=== PATIENT | male | born 1940 | race Hispanic/Latino ===

== ENCOUNTER 2018-02-23 08:40 | Outpatient (CLI) | payer MEDICARE ==
[2018-02-23 09:24] LABS: Blood Urea Nitrogen 9 mg/dL (9-20)
--- NOTE | 2018-02-24 07:47 | Cat Scan Report ---
CT ABDOMEN PELVIS WITH AND WITHOUT CONTRAST: HISTORY: Epigastric pain, abnormal weight loss. COMPARISON: CT abdomen pelvis with contrast dated 01/26/17. TECHNIQUE: Helical CT in 1.25mm intervals before and after IV contrast. Sagittal and coronal reconstructions. FINDINGS: Lung bases: Mild cardiomegaly and pacemaker device are unchanged. A small intermediate density right pleural fluid collection has developed. Nondisplaced right posterolateral rib fractures are identified at levels 7-10. Some of the fractures demonstrate early callous formation consistent with subacute fractures. The visualized lung bases are adequately aerated with no evidence for pneumonia or mass. Liver: Normal. Biliary system: Normal. Pancreas: Normal. Spleen: The spleen is normal size but is lobulated and contains scattered calcified granulomas. 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 There are 3 simple cysts in the right side with the largest measuring 4.2 cm. There is a single hemorrhagic cyst on the left side measuring 2.1 cm. No evidence for renal mass, nephrolithiasis or obstruction. Focal cortical scarring near the superior pole of the right kidney is unchanged. The ureters are normal course and caliber. The bladder is poorly distended. Mild lateral thickening or trabeculation is identified. No focal mass or filling defect. Adrenal glands: Normal. Aorta: Mild diffuse calcifications. No evidence for stenosis, aneurysm or dissection. Intestines: There are a few scattered diverticula throughout the length of the colon. No evidence for obstruction, large mass or focal inflammation. Partial small bowel obstruction pattern has resolved since 01/26/17. Appendix: Not confidently identified, correlate with surgical history. Ascites: None. Adenopathy: None. Musculoskeletal: The bony structures are demineralized with degenerative change. Right rib fractures are again noted. No additional fracture or bony lesion identified. Previous ventral wall hernia changes are suspected. IMPRESSION: Mild cardiomegaly, stable. Small right hemothorax with right posterolateral rib fractures as described. Horseshoe kidney with scattered renal cysts. Mild colonic diverticulosis. No acute inflammatory process, adenopathy or mass is identified.
== END 2018-02-23 08:41 | disposition home or self-care (01) ==
LOC: CT 08:40
PROVIDERS: ATTEND Internal Medicine
DX: K57.30 Diverticulosis of large intestine without perforation or abscess without bleeding (principal); R63.4 Abnormal weight loss; I70.0 Atherosclerosis of aorta; N28.1 Cyst of kidney, acquired; I25.10 Atherosclerotic heart disease of native coronary artery without angina pectoris; I11.0 Hypertensive heart disease with heart failure; I50.9 Heart failure, unspecified; I48.91 Unspecified atrial fibrillation; F32.9 Major depressive disorder, single episode, unspecified; F41.9 Anxiety disorder, unspecified; Z95.0 Presence of cardiac pacemaker
CPT/HCPCS: 36415; 74178; 82565; 84520; Q9967

== ENCOUNTER 2020-08-16 01:36 | Inpatient (IN) | payer MEDICARE ==
[2020-08-16 02:13] LABS: Hematocrit 39.1 % (35.5-45.6); Hemoglobin 12.9 gm/dl (11.8-15.2); Mean Corpuscular HGB Conc 33 % (32-34); Mean Corpuscular Volume 97 fl (84-94); Platelet Count 399 K/mm3 (140-440); Red Blood Count 4.03 M/mm3 (3.65-5.03); Red Cell Distribution Width 15.6 % (13.2-15.2)
[2020-08-16] MEDS ORDERED: ONDANSETRON 4 MG/2 ML INJ IV ONE (02:33)
[2020-08-16] MEDS ORDERED: HYDROmorphone 1 MG/1 ML INJ IV ONE (02:33)
[2020-08-16] MEDS ORDERED: SODIUM CHLORIDE 0.9% 1000 ML 1,000 ML IV ONE ×2 (02:33→06:21)
--- NOTE | 2020-08-16 02:33 | Emergency Department Report ---
ED Abdominal Pain HPI - General Chief Complaint: Abdominal Pain Stated Complaint: CONSTIPATION Time Seen by Provider: 08/16/20 02:17 Source: patient, EMS Mode of arrival: Stretcher Limitations: No Limitations - History of Present Illness Initial Comments: Patient is an 80-year-old male that presents emergency room with complaints of generalized abdominal pain. Patient states it started 3 PM yesterday. Patient states that the pain is worsening. Patient states the pain is a 10 out of 10. Patient states the pain is better with rest and worse with movement and palpation. Patient denies fever and chills. Patient states he feels like he is blocked up. Patient states he has had a bowel movement for 3 days. Patient states he is now nauseated. Patient denies vomiting. Patient states he has had a bowel obstruction in the past. Patient denies chest pain or shortness of breath. Patient denies recent travel. Patient denies recent international travel. Patient denies exposure to the novel coronavirus. Patient denies sick contacts. Patient denies fever and chills. Patient denies cough. Patient denies diarrhea. Patient denies coming in contact with anybody with symptoms of the novel coronavirus. MD Complaint: abdominal pain -: Sudden Location: diffuse Radiation: none Migration to: no migration Severity: severe Severity scale (0 -10): 10 Quality: stabbing Consistency: constant Improves With: rest Worsens With: movement Associated Symptoms: nausea, constipation. denies: vomiting, diarrhea, fever, chills, dysuria, hematemesis, hematochezia, hematuria, syncope - Related Data Home Medications Medication Instructions Recorded Confirmed Last Taken Furosemide [Lasix TAB] 20 mg PO QDAY 07/26/16 02/08/18 01/26/17 Multivit-Min/Iron Fum/Folic AC 1 each PO DAILY 07/26/16 02/08/18 01/26/17 [Gvbuy-Bygtmwv-Lzcguzkj Tablet] Potassium Chloride [K-Dur] 10 meq PO QDAY 07/26/16 02/08/18 01/26/17 Pravastatin Sodium [Pravastatin] 80 mg PO QHS 07/26/16 02/08/18 01/25/17 Sertraline [Zoloft] 50 mg PO QDAY 07/26/16 02/08/18 01/26/17 atenoloL [Tenormin] 50 mg PO BID 07/26/16 02/08/18 01/26/17 lisinopriL [Zestril TAB] 40 mg PO QDAY 07/26/16 02/08/18 01/26/17 Ascorbic Acid [Vitamin C] 1,000 mg PO QDAY 11/11/16 02/08/18 01/26/17 Ca/D3/Mag Ox/Zinc/[employer]/Sherif/Bor 1 each PO QDAY 11/11/16 02/08/18 01/26/17 [Calcium 600-Vit D3-Min Chew Tb] Cyanocobalamin (Vitamin B-12) 1,500 mcg PO QDAY 11/11/16 02/08/18 01/26/17 [Vitamelts Energy] Glucos/MSM/Colgii/C/Man/Herb21 1 each PO QDAY 11/11/16 02/08/18 01/26/17 [Glucosamine-MSM Complex Cap] Ubidecarenone [Coq-10] 100 mg PO QDAY 11/11/16 02/08/18 01/26/17 Previous Rx's Medication Instructions Recorded Last Taken Type Apixaban [Eliquis] 5 mg PO BID #60 tablet 02/11/18 Unknown Rx Allergies Allergy/AdvReac Type Severity Reaction Status Date / Time piperacillin [From Zosyn] AdvReac Rash Verified 02/08/18 09:24 tazobactam [From Zosyn] AdvReac Rash Verified 02/08/18 09:24 ED Review of Systems ROS: Stated complaint: CONSTIPATION Other details as noted in HPI Constitutional: denies: chills, fever Eyes: denies: eye pain, eye discharge, vision change ENT: denies: ear pain, throat pain Respiratory: denies: cough, shortness of breath, wheezing Cardiovascular: denies: chest pain, palpitations Endocrine: no symptoms reported Gastrointestinal: abdominal pain, nausea, constipation. denies: vomiting, diarrhea, hematemesis, melena Genitourinary: denies: urgency, dysuria Musculoskeletal: denies: back pain, joint swelling, arthralgia Skin: denies: rash, lesions Neurological: denies: headache, weakness, paresthesias Psychiatric: denies: anxiety, depression Hematological/Lymphatic: denies: easy bleeding, easy bruising ED Past Medical Hx - Past Medical History Previous Medical History?: Yes Hx Hypertension: Yes Hx Arthritis: Yes (IN ANKLES AND BACK) Hx HIV: No Additional medical history: abd surgery colostomy with reversal. Atrial fibrillation. high cholesterol. Pacemaker - Surgical History Past Surgical History?: Yes Hx Pacemaker: Yes (2008) Additional Surgical History: Colon resection - Family History Family history: no significant - Social History Smoking Status: Never Smoker Substance Use Type: None - Medications Home Medications: Home Medications Medication Instructions Recorded Confirmed Last Taken Type Furosemide [Lasix TAB] 20 mg PO QDAY 07/26/16 02/08/18 01/26/17 History Multivit-Min/Iron Fum/Folic AC 1 each PO DAILY 07/26/16 02/08/18 01/26/17 History [Srhps-Jbjyarn-Nlnbmqyq Tablet] Potassium Chloride [K-Dur] 10 meq PO QDAY 07/26/16 02/08/18 01/26/17 History Pravastatin Sodium [Pravastatin] 80 mg PO QHS 07/26/16 02/08/18 01/25/17 History Sertraline [Zoloft] 50 mg PO QDAY 07/26/16 02/08/18 01/26/17 History atenoloL [Tenormin] 50 mg PO BID 07/26/16 02/08/18 01/26/17 History lisinopriL [Zestril TAB] 40 mg PO QDAY 07/26/16 02/08/18 01/26/17 History Ascorbic Acid [Vitamin C] 1,000 mg PO QDAY 11/11/16 02/08/18 01/26/17 History Ca/D3/Mag Ox/Zinc/[employer] Sergeant/Sherif/Bor 1 each PO QDAY 11/11/16 02/08/18 01/26/17 History [Calcium 600-Vit D3-Min Chew Tb] Cyanocobalamin (Vitamin B-12) 1,500 mcg PO QDAY 11/11/16 02/08/18 01/26/17 History [Vitamelts Energy] Glucos/MSM/Colgii/C/Man/Herb21 1 each PO QDAY 11/11/16 02/08/18 01/26/17 History [Glucosamine-MSM Complex Cap] Ubidecarenone [Coq-10] 100 mg PO QDAY 11/11/16 02/08/18 01/26/17 History Apixaban [Eliquis] 5 mg PO BID #60 tablet 02/11/18 Unknown Rx ED Physical Exam - General Limitations: No Limitations General appearance: alert, in no apparent distress - Head Head exam: Present: atraumatic, normocephalic - Eye Eye exam: Present: normal appearance - ENT ENT exam: Present: mucous membranes moist - Neck Neck exam: Present: normal inspection - Respiratory Respiratory exam: Present: normal lung sounds bilaterally. Absent: respiratory distress - Cardiovascular Cardiovascular Exam: Present: regular rate, normal rhythm. Absent: systolic murmur, diastolic murmur, rubs, gallop - GI/Abdominal GI/Abdominal exam: Present: soft, distended, tenderness, normal bowel sounds - Rectal Rectal exam: Present: deferred - Extremities Exam Extremities exam: Present: normal inspection - Back Exam Back exam: Present: normal inspection - Neurological Exam Neurological exam: Present: alert, oriented X3 - Psychiatric Psychiatric exam: Present: normal affect, normal mood - Skin Skin exam: Present: warm, dry, intact, normal color. Absent: rash ED Course Vital Signs 08/16/20 08/16/20 08/16/20 02:51 02:55 03:00 Pulse Rate 87 Respiratory 18 15 Rate Blood Pressure 129/68 O2 Sat by Pulse 85 96 Oximetry 08/16/20 08/16/20 08/16/20 03:15 03:30 03:45 Pulse Rate 83 89 96 H Respiratory 18 13 15 Rate Blood Pressure 122/58 122/58 131/71 O2 Sat by Pulse 82 L 90 99 Oximetry 08/16/20 08/16/20 08/16/20 04:00 04:44 04:46 Pulse Rate 89 91 H 88 Respiratory 14 21 17 Rate Blood Pressure 130/72 130/72 136/66 O2 Sat by Pulse 99 97 100 Oximetry 08/16/20 08/16/20 08/16/20 05:00 05:15 05:30 Pulse Rate 88 93 H 90 Respiratory 21 17 22 Rate Blood Pressure 134/69 131/62 134/69 O2 Sat by Pulse 100 97 99 Oximetry - Reevaluation(s) Reevaluation #1: I discussed all results with patient. I discussed plan of care with patient. Patient agrees with plan of care and admission. Patient to be admitted to the hospitalist service. 08/16/20 05:17 - Consultations Consultation #1: Hospitalist consulted for admission. Hospitalist to admit patient. 08/16/20 05:10 Consultation #2: General surgery consulted. I discussed the case with Dr. Bautista. Dr. Bautista states he will see the patient in the morning and agrees with NG and fluids. 08/16/20 05:17 ED Medical Decision Making - Lab Data Result diagrams: 08/16/20 01:56 08/16/20 01:56 - Radiology Data Radiology results: report reviewed CT ABDOMEN AND PELVIS WITH CONTRAST HISTORY: Pt complains of abd pain with nausea and constipation. COMPARISON: CT abdomen/pelvis from 02/23/2018 TECHNIQUE: CT images of the abdomen and pelvis were obtained following administration of intravenous contrast. All CT scans at this location are performed using CT dose reduction for ALARA by means of automated exposure control. CONTRAST: 100 ml of intravenous contrast administered. FINDINGS: Lungs/bones: Lung bases are clear. There is mild cardiomegaly. Degenerative changes are present in the spine and pelvis with no acute osseous abnormality. Abdomen/pelvis: The liver, gallbladder, spleen, pancreas, and adrenals are unremarkable. There is a horseshoe kidney with several small cysts which are simple in appearance. The stomach is mildly distended and the proximal GI tract is abnormal with multiple distended and dilated bowel loops. Several these loops show areas of angulation. The distal small bowel is collapsed. Prostate is enlarged and indents bladder base. No pelvic free fluid. There is colonic diverticulosis with no acute inflammatory change identified. Partial colectomy change is noted. IMPRESSION: 1. 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 The stomach is also grossly distended. 2. Additional incidental and postoperative findings as above. - Medical Decision Making Patient is an 80-year-old male that presents emergency room with complaints of constipation, nausea and abdominal pain. Patient has history of small bowel obstructions. Patient had labs done and a CT done. Patient's labs were essentially unremarkable. Patient's CT scanning was positive for a partial small bowel obstruction. Patient had an NG tube placed. Patient was given pain meds and IV fluids in the ER. I discussed the case with general surgery. [facility] surgery recommendations were received. Patient admitted to the hospitalist service for further evaluation and treatment. - Differential Diagnosis SBO, abdominal pain, nausea, constipation Critical Care Time: Yes Critical care time in (mins) excluding proc time.: 35 Critical care attestation.: If time is entered above; I have spent that time in minutes in the direct care of this critically ill patient, excluding procedure time. Critical Care Time: 35 minutes ED Disposition Clinical Impression: Small bowel obstruction Abdominal pain Qualifiers: Abdominal location: generalized Qualified Code(s): R10.84 - Generalized abdominal pain Disposition: DC-09 OP ADMIT IP TO THIS HOSP Is pt being admited?: Yes Does the pt Need Aspirin: No Condition: Critical Time of Disposition: 05:20
[2020-08-16 02:35] LABS: Alanine Aminotransferase 17 units/L (7-56); Albumin 4.6 g/dL (3.9-5); BUN/Creatinine Ratio 17; Blood Urea Nitrogen 15 mg/dL (9-20); Calcium 9.3 mg/dL (8.4-10.2); Hemolysis Index 4
[2020-08-16 04:49] LABS: Basophils % (Manual) 0 % (0.0-1.8); Eosinophils % (Manual) 0 % (0.0-4.3); Spherocytes Few; Total Cells Counted 100
[2020-08-16 04:50] LABS: Anisocytosis 1+; Burr Cells Few; Platelet Estimate Consistent w Auto
--- NOTE | 2020-08-16 05:01 | Cat Scan Report ---
CT ABDOMEN AND PELVIS WITH CONTRAST HISTORY: Pt complains of abd pain with nausea and constipation. COMPARISON: CT abdomen/pelvis from 02/23/2018 TECHNIQUE: CT images of the abdomen and pelvis were obtained following administration of intravenous contrast. All CT scans at this location are performed using CT dose reduction for ALARA by means of automated exposure control. CONTRAST: 100 ml of intravenous contrast administered. FINDINGS: Lungs/bones: Lung bases are clear. There is mild cardiomegaly. Degenerative changes are present in t he spine and pelvis with no acute osseous abnormality. Abdomen/pelvis: The liver, gallbladder, spleen, pancreas, and adrenals are unremarkable. There is a horseshoe kidney with several small cysts which are simple in appearance. The stomach is mildly distended and the proximal GI tract is abnormal with multiple distended and dil ated bowel loops. Several these loops show areas of angulation. The distal small bowel is collapsed. Prostate is enlarged and indents bladder base. No pelvic free fluid. There is colonic diverticulosis with no acute inflammatory change identified. Partial colectomy change is noted. IMPRESSION: 1. 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 The stomach is also grossly distended. 2. Additional incidental and postoperative findings as above. Signer Name: Balwinder Schilling MD Signed: 08/16/2020 4:56 AM Workstation Name: [id number]
[2020-08-16] MEDS ORDERED: ACETAMINOPHEN 650 MG RECT SUPP PR PRN (06:32)
[2020-08-16] MEDS ORDERED: ONDANSETRON 4 MG/2 ML INJ IV PRN (06:33)
[2020-08-16] MEDS ORDERED: HYDROmorphone 1 MG/1 ML INJ IM PRN (06:33)
--- NOTE | 2020-08-16 06:43 | History and Physical Report ---
History of Present Illness Date of examination: 08/16/20 Date of admission: 08/16/20 05:19 Chief complaint: Abdominal pain History of present illness: History of presenting illness, Patient is an 80 year old male who presents with abdominal pain going on for about 36 hours. patient described the pain as severe and non radiating and measured as 10/10 in intesity. pain is associated with nausea but no vomiting, fever.chills . Patient admitted to having constipation without bowel movement for 3 days. He said that his symptos are similar to what he had when he had small bowel obstruction. Past History Past Medical History: atrial fib, arthritis, hypertension, hyperlipidemia Past Surgical History: Other (COLOSTOMY WITH REVERSAL, PACEMAKER, COLON RESECTION) Social history: no significant social history Family history: no significant family history Medications and Allergies Allergies Allergy/AdvReac Type Severity Reaction Status Date / Time piperacillin [From Zosyn] AdvReac Rash Verified 02/08/18 09:24 tazobactam [From Zosyn] AdvReac Rash Verified 02/08/18 09:24 Home Medications Medication Instructions Recorded Confirmed Last Taken Type Furosemide [Lasix TAB] 20 mg PO QDAY 07/26/16 02/08/18 01/26/17 History Multivit-Min/Iron Fum/Folic AC 1 each PO DAILY 07/26/16 02/08/18 01/26/17 History [Aiscm-Edipevv-Dhcvlkmv Tablet] Potassium Chloride [K-Dur] 10 meq PO QDAY 07/26/16 02/08/18 01/26/17 History Pravastatin Sodium [Pravastatin] 80 mg PO QHS 07/26/16 02/08/18 01/25/17 History Sertraline [Zoloft] 50 mg PO QDAY 07/26/16 02/08/18 01/26/17 History atenoloL [Tenormin] 50 mg PO BID 07/26/16 02/08/18 01/26/17 History lisinopriL [Zestril TAB] 40 mg PO QDAY 07/26/16 02/08/18 01/26/17 History Ascorbic Acid [Vitamin C] 1,000 mg PO QDAY 11/11/16 02/08/18 01/26/17 History Ca/D3/Mag Ox/Zinc/Sports Instructor/Sherif/Bor 1 each PO QDAY 02/02/08/18 01/26/17 History [Calcium 600-Vit D3-Min Chew Tb] Cyanocobalamin (Vitamin B-12) 1,500 mcg PO QDAY 11/11/16 02/08/18 01/26/17 History [Vitamelts Energy] Glucos/MSM/Colgii/C/Man/Herb21 1 each PO QDAY 11/11/16 02/08/18 01/26/17 History [Glucosamine-MSM Complex Cap] Ubidecarenone [Coq-10] 100 mg PO QDAY 11/11/16 02/08/18 01/26/17 History Apixaban [Eliquis] 5 mg PO BID #60 tablet 02/11/18 Unknown Rx Active Meds: Active Medications Acetaminophen (Tylenol) 650 mg [place] Q4H PRN PRN Reason: Fever >101 Hydromorphone HCl (Dilaudid) 0.5 mg IM Q4H PRN PRN Reason: Pain , Severe (7-10) Sodium Chloride (Nacl 0.9% 1000 Ml) 1,000 mls @ 250 mls/hr IV ONCE ONE Stop: 08/16/20 10:20 Dextrose/Sodium Chloride (D5/0.45ns) 1,000 mls @ 75 mls/hr IV DIRECT CHERELLE Levofloxacin/Dextrose (Levaquin 750mg/150ml) 750 mg in 150 mls @ 100 mls/hr IV Q24HR CHERELLE; Protocol Metronidazole (Flagyl 500 Mg/100 Ml) 500 mg in 100 mls @ 100 mls/hr IV Q8HR CHERELLE; Protocol Ondansetron HCl (Zofran) 4 mg IV Q8H PRN PRN Reason: Nausea And Vomiting Review of Systems Constitutional: no fever, no chills, no sweats, no weakness Eyes: bilateral: other (NO BILATERAL EYE SYMPTOMS) Ears, nose, mouth and throat: no ear pain Cardiovascular: no chest pain, no orthopnea, no palpitations, no rapid/irregular heart beat, no syncope, no lightheadedness, no shortness of breath Respiratory: no cough, no shortness of breath, no dyspnea on exertion, no congestion, no wheezing Gastrointestinal: abdominal pain, nausea, constipation, change in bowel habits, no vomiting, no diarrhea, no hematemesis, no melena, no hematochezia Genitourinary Male: no dysuria, no hematuria, no flank pain, no discharge, no urinary frequency, no urinary hesitancy, no nocturia, no incontinence Rectal: no pain, no itching Musculoskeletal: no neck stiffness, no neck pain, no shooting arm pain, no arm numbness/tingling, no low back pain Integumentary: no deferred, no rash, no pruritis, no redness, no sores, no wounds, no jaundice, no lesions Neurological: no paralysis, no weakness, no parathesias, no numbness, no tingling, no seizures, no syncope, no tremors, no headaches, no migraines Psychiatric: no anxiety, no memory loss, no depression Endocrine: no polyphagia, no polyuria, no nocturia Hematologic/Lymphatic: no easy bruising, no easy bleeding Exam - Constitutional Vitals: Temp Pulse Resp BP Pulse Ox 90 22 134/69 99 08/16/20 05:30 08/16/20 05:30 08/16/20 05:30 08/16/20 05:30 General appearance: Present: mild distress - EENT Eyes: Present: PERRL, EOM intact ENT: hearing intact, clear oral mucosa - Neck Neck: Present: supple, normal ROM - Respiratory Respiratory effort: normal - Cardiovascular Rhythm: regular Heart Sounds: Present: S1 & S2 - Extremities Extremities: no ischemia, No edema - Abdominal General gastrointestinal: Present: soft, distended. Absent: tender, non- distended, rigid, hypoactive bowel sounds, absent bowel sounds, hepatomegaly, splenomegaly, mass, hernia Male genitourinary: Present: deferred - Rectal Rectal Exam: deferred - Integumentary Integumentary: Present: clear, warm, dry - Musculoskeletal Musculoskeletal: strength equal bilaterally - Neurologic Neurologic: moves all extremities HEART Score - HEART Score Risk factors: 1-2 risk factors Troponin: < normal limit - Critical Actions Critical Actions: 0-3 pts:0.9-1.7%risk of adverse cardiac event.Candidate for discharge Results - Labs CBC & Chem 7: 08/16/20 01:56 08/16/20 01:56 Labs: Laboratory Last Values WBC 13.3 K/mm3 (4.5-11.0) H 08/16/20 01:56 RBC 4.03 M/mm3 (3.65-5.03) 08/16/20 01:56 Hgb 12.9 gm/dl (11.8-15.2) 08/16/20 01:56 Hct 39.1 % (35.5-45.6) 08/16/20 01:56 MCV 97 fl (84-94) H 08/16/20 01:56 MCH 32 pg (28-32) 08/16/20 01:56 MCHC 33 % (32-34) 08/16/20 01:56 RDW 15.6 % (13.2-15.2) H 08/16/20 01:56 Plt Count 399 K/mm3 (140-440) 08/16/20 01:56 Add Manual Diff Complete 08/16/20 01:56 Total Counted 100 08/16/20 01:56 Seg Neutrophils % Podiatrist 08/16/20 01:56 Seg Neuts % (Manual) 92.0 % (40.0-70.0) H 08/16/20 01:56 Band Neutrophils % 0 % 08/16/20 01:56 Lymphocytes % (Manual) 7.0 % (13.4-35.0) L 08/16/20 01:56 Reactive Lymphs % (Man) 0 % 08/16/20 01:56 Monocytes % (Manual) 1.0 % (0.0-7.3) 08/16/20 01:56 Eosinophils % (Manual) 0 % (0.0-4.3) 08/16/20 01:56 Basophils % (Manual) 0 % (0.0-1.8) 08/16/20 01:56 Metamyelocytes % 0 % 08/16/20 01:56 Myelocytes % 0 % 08/16/20 01:56 Promyelocytes % 0 % 08/16/20 01:56 Blast Cells % 0 % 08/16/20 01:56 Nucleated RBC % Not Reportable 08/16/20 01:56 Seg Neutrophils # Man 12.2 K/mm3 (1.8-7.7) H 08/16/20 01:56 Band Neutrophils # 0.0 K/mm3 08/16/20 01:56 Lymphocytes # (Manual) 0.9 K/mm3 (1.2-5.4) L 08/16/20 01:56 Abs React Lymphs (Man) 0.0 K/mm3 08/16/20 01:56 Monocytes # (Manual) 0.1 K/mm3 (0.0-0.8) 08/16/20 01:56 Eosinophils # (Manual) 0.0 K/mm3 (0.0-0.4) 08/16/20 01:56 Basophils # (Manual) 0.0 K/mm3 (0.0-0.1) 08/16/20 01:56 Metamyelocytes # 0.0 K/mm3 08/16/20 01:56 Myelocytes # 0.0 K/mm3 08/16/20 01:56 Promyelocytes # 0.0 K/mm3 08/16/20 01:56 Blast Cells # 0.0 K/mm3 08/16/20 01:56 WBC Morphology Not Reportable 08/16/20 01:56 Hypersegmented Neuts Not Reportable 08/16/20 01:56 Hyposegmented Neuts Not Reportable 08/16/20 01:56 Hypogranular Neuts Not Reportable 08/16/20 01:56 Smudge Cells Not Reportable 08/16/20 01:56 Toxic Granulation Not Reportable 08/16/20 01:56 Toxic Vacuolation Not Reportable 08/16/20 01:56 Dohle Bodies Not Reportable 08/16/20 01:56 Pelger-Huet Anomaly Not Reportable 08/16/20 01:56 [place] Rods Not Reportable 08/16/20 01:56 Platelet Estimate Consistent w auto 08/16/20 01:56 Clumped Platelets Not Reportable 08/16/20 01:56 Plt Clumps, EDTA Not Reportable 08/16/20 01:56 Large Platelets Not Reportable 08/16/20 01:56 Giant Platelets Not Reportable 08/16/20 01:56 Platelet Satelliting Not Reportable 08/16/20 01:56 Plt Morphology Comment Not Reportable 08/16/20 01:56 RBC Morphology Not Reportable 08/16/20 01:56 Dimorphic RBCs Not Reportable 08/16/20 01:56 Polychromasia Not Reportable 08/16/20 01:56 Hypochromasia Not Reportable 08/16/20 01:56 Poikilocytosis Not Reportable 08/16/20 01:56 Anisocytosis 1+ 08/16/20 01:56 Microcytosis Not Reportable 08/16/20 01:56 Macrocytosis Not Reportable 08/16/20 01:56 Spherocytes Few 08/16/20 01:56 Pappenheimer Bodies Not Reportable 08/16/20 01:56 Sickle Cells Not Reportable 08/16/20 01:56 Target Cells Not Reportable 08/16/20 01:56 Tear Drop Cells Not Reportable 08/16/20 01:56 Ovalocytes Not Reportable 08/16/20 01:56 Helmet Cells Not Reportable 08/16/20 01:56 Roman-[place] Bodies Not Reportable 08/16/20 01:56 Nelson Rings Not Reportable 08/16/20 01:56 [place] Cells Few 08/16/20 01:56 Bite Cells Not Reportable 08/16/20 01:56 Crenated Cell Not Reportable 08/16/20 01:56 Elliptocytes Not Reportable 08/16/20 01:56 Acanthocytes (Spur) Not Reportable 08/16/20 01:56 Rouleaux Not Reportable 08/16/20 01:56 Hemoglobin C Crystals Not Reportable 08/16/20 01:56 Schistocytes Not Reportable 08/16/20 01:56 Malaria parasites Not Reportable 08/16/20 01:56 Neno Bodies Not Reportable 08/16/20 01:56 Hem Pathologist Commnt No 08/16/20 01:56 Sodium 138 mmol/L (137-145) 08/16/20 01:56 Potassium 4.2 mmol/L (3.6-5.0) 08/16/20 01:56 Chloride 97.0 mmol/L (98-107) L 08/16/20 01:56 Carbon Dioxide 28 mmol/L (22-30) 08/16/20 01:56 Anion Gap 17 mmol/L 08/16/20 01:56 BUN 15 mg/dL (9-20) 08/16/20 01:56 Creatinine 0.9 mg/dL (0.8-1.3) 08/16/20 01:56 Estimated GFR > 60 ml/min 08/16/20 01:56 BUN/Creatinine Ratio 17 % 08/16/20 01:56 Glucose 129 mg/dL (75-100) H 08/16/20 01:56 Calcium 9.3 mg/dL (8.4-10.2) 08/16/20 01:56 Total Bilirubin 0.70 mg/dL (0.1-1.2) 08/16/20 01:56 AST 31 units/L (5-40) 08/16/20 01:56 ALT 17 units/L (7-56) 08/16/20 01:56 Alkaline Phosphatase 78 units/L (35-129) 08/16/20 01:56 Total Protein 7.3 g/dL (6.3-8.2) 08/16/20 01:56 Albumin 4.6 g/dL (3.9-5) 08/16/20 01:56 Albumin/Globulin Ratio 1.7 % 08/16/20 01:56 Assessment and Plan - Patient Problems (1) Small bowel obstruction Current Visit: Yes Status: Acute Plan to address problem: 1. NPO 2. I.V DILUDID FOR PAIN 3. N-G SUCTIONING 4. I.V D51/2 NORMAL SALINE 5. I.V LEVAQUIN ANTIBIOTIC 6. I.V METRONIDAZOLE ANTIBIOTIC. 7. SURGICAL CONSULT 8. I.V ZOFRAN FOR NAUSEA AND VOMITING
--- NOTE | 2020-08-16 06:52 | XRay Report ---
ABDOMEN 1 VIEW(S) INDICATION / CLINICAL INFORMATION: ng tube placement. COMPARISON: 01/27/1970 FINDINGS: TUBES / LINES: NG tube tip in the proximal stomach. BOWEL GAS PATTERN: No significant abnormality. FREE AIR / EXTRALUMINAL GAS: None seen. ADDITIONAL FINDINGS: Patchy bibasilar airspace disease IMPRESSION: 1. NGT in the proximal stomach. Signer Name: Balwinder Schilling MD Signed: 08/16/2020 6:47 AM Workstation Name: [id number]
--- NOTE | 2020-08-16 09:06 | Progress Note ---
Assessment and Plan Full consult to follow- pt seen and examined Recurrent pSBO--- SBFT ordered NPO/IVF/NGT Subjective Date of service: 08/16/20 Objective Vital Signs - 12hr 08/16/20 08/16/20 08/16/20 02:51 02:55 03:00 Temperature Pulse Rate 87 Respiratory 18 15 Rate Blood Pressure 129/68 O2 Sat by Pulse 85 96 Oximetry 08/16/20 08/16/20 08/16/20 03:15 03:30 03:45 Temperature Pulse Rate 83 89 96 H Respiratory 18 13 15 Rate Blood Pressure 122/58 122/58 131/71 O2 Sat by Pulse 82 L 90 99 Oximetry 08/16/20 08/16/20 08/16/20 04:00 04:44 04:46 Temperature Pulse Rate 89 91 H 88 Respiratory 14 21 17 Rate Blood Pressure 130/72 130/72 136/66 O2 Sat by Pulse 99 97 100 Oximetry 08/16/20 08/16/20 08/16/20 05:00 05:15 05:30 Temperature Pulse Rate 88 93 H 90 Respiratory 21 17 22 Rate Blood Pressure 134/69 131/62 134/69 O2 Sat by Pulse 100 97 99 Oximetry 08/16/20 08/16/20 08/16/20 05:40 05:50 06:00 Temperature Pulse Rate 84 95 H 88 Respiratory 21 17 21 Rate Blood Pressure 126/58 114/58 126/58 O2 Sat by Pulse 99 96 96 Oximetry 08/16/20 08/16/20 08/16/20 06:10 06:20 06:30 Temperature Pulse Rate 94 H 98 H 92 H Respiratory 20 28 H 22 Rate Blood Pressure 123/79 119/62 127/60 O2 Sat by Pulse 98 82 L 89 Oximetry 08/16/20 07:17 Temperature 98.2 F Pulse Rate 87 Respiratory 20 Rate Blood Pressure 116/66 O2 Sat by Pulse 93 Oximetry - Labs 08/16/20 01:56 08/16/20 01:56 Diabetes panel 08/16/20 Range/Units 01:56 Sodium 138 (137-145) mmol/L Potassium 4.2 (3.6-5.0) mmol/L Chloride 97.0 L (98-107) mmol/L Carbon Dioxide 28 (22-30) mmol/L BUN 15 (9-20) mg/dL Creatinine 0.9 (0.8-1.3) mg/dL Glucose 129 H (75-100) mg/dL Calcium 9.3 (8.4-10.2) mg/dL AST 31 (5-40) units/L ALT 17 (7-56) units/L Alkaline Phosphatase 78 (35-129) units/L Total Protein 7.3 (6.3-8.2) g/dL Albumin 4.6 (3.9-5) g/dL Calcium panel 08/16/20 Range/Units 01:56 Calcium 9.3 (8.4-10.2) mg/dL Albumin 4.6 (3.9-5) g/dL Pituitary panel 08/16/20 Range/Units 01:56 Sodium 138 (137-145) mmol/L Potassium 4.2 (3.6-5.0) mmol/L Chloride 97.0 L (98-107) mmol/L Carbon Dioxide 28 (22-30) mmol/L BUN 15 (9-20) mg/dL Creatinine 0.9 (0.8-1.3) mg/dL Glucose 129 H (75-100) mg/dL Calcium 9.3 (8.4-10.2) mg/dL Adrenal panel 08/16/20 Range/Units 01:56 Sodium 138 (137-145) mmol/L Potassium 4.2 (3.6-5.0) mmol/L Chloride 97.0 L (98-107) mmol/L Carbon Dioxide 28 (22-30) mmol/L BUN 15 (9-20) mg/dL Creatinine 0.9 (0.8-1.3) mg/dL Glucose 129 H (75-100) mg/dL Calcium 9.3 (8.4-10.2) mg/dL Total Bilirubin 0.70 (0.1-1.2) mg/dL AST 31 (5-40) units/L ALT 17 (7-56) units/L Alkaline Phosphatase 78 (35-129) units/L Total Protein 7.3 (6.3-8.2) g/dL Albumin 4.6 (3.9-5) g/dL
[2020-08-16] MEDS: D5W/0.45% NACL 1,000 ML IV SCH ×2 (14:58→21:17)
[2020-08-16] MEDS: metroNIDAZOLE/NS 500 MG/100 ML 500 MG/100 ML BAG IV SCH ×2 (16:35→21:55)
--- NOTE | 2020-08-16 17:33 | Event Note ---
Date: 08/16/20 patient seen and examined 80 y/o WM presented with SBO had h/o SBO 4times in the past placed on NG suction, GS following cont NPO, iv fluid, supportive care
--- NOTE | 2020-08-16 17:51 | Consultation ---
History of Present Illness Consult date: 08/16/20 Reason for consult: abdominal pain - History of present illness History of present illness: 80 yo WM in very good health overall presents with recurrent SBO. pt had colon surgery about 20 yrs ago and has had 4 SBOs since then that he was hospitalized for- last one in 2017. pt has had successful non-operative management of all of his SBOs to date. c/o crampy abd pain/etc for 1 1/2 days Pt with no chronic pSBO sx in-between hospitalizations for SBO. Past History Past Medical History: atrial fib, arthritis, hypertension, hyperlipidemia Past Surgical History: Other (COLOSTOMY WITH REVERSAL, PACEMAKER, COLON RESECTION) Social history: no significant social history Family history: no significant family history Medications and Allergies Allergies Allergy/AdvReac Type Severity Reaction Status Date / Time piperacillin [From Zosyn] AdvReac Rash Verified 02/08/18 09:24 tazobactam [From Zosyn] AdvReac Rash Verified 02/08/18 09:24 Home Medications Medication Instructions Recorded Confirmed Last Taken Type Furosemide [Lasix TAB] 20 mg PO QDAY 07/26/16 02/08/18 01/26/17 History Multivit-Min/Iron Fum/Folic AC 1 each PO DAILY 07/26/16 02/08/18 01/26/17 History [Tsugs-Vtchnmq-Agnvwofi Tablet] Potassium Chloride [K-Dur] 10 meq PO QDAY 07/26/16 02/08/18 01/26/17 History Pravastatin Sodium [Pravastatin] 80 mg PO QHS 07/26/16 02/08/18 01/25/17 History Sertraline [Zoloft] 50 mg PO QDAY 07/26/16 02/08/18 01/26/17 History atenoloL [Tenormin] 50 mg PO BID 07/26/16 02/08/18 01/26/17 History lisinopriL [Zestril TAB] 40 mg PO QDAY 07/26/16 02/08/18 01/26/17 History Ascorbic Acid [Vitamin C] 1,000 mg PO QDAY 11/11/16 02/08/18 01/26/17 History Ca/D3/Mag Ox/Zinc/Artificial Flowers [place]/Sherif/Bor 1 each PO QDAY 11/11/16 02/08/18 01/26/17 History [Calcium 600-Vit D3-Min Chew Tb] Cyanocobalamin (Vitamin B-12) 1,500 mcg PO QDAY 11/11/16 02/08/18 01/26/17 History [Vitamelts Energy] Glucos/MSM/Colgii/C/Man/Herb21 1 each PO QDAY 11/11/16 02/08/18 01/26/17 History [Glucosamine-MSM Complex Cap] Ubidecarenone [Coq-10] 100 mg PO QDAY 11/11/16 02/08/18 01/26/17 History Apixaban [Eliquis] 5 mg PO BID #60 tablet 02/11/18 Unknown Rx Active Meds: Active Medications Acetaminophen (Tylenol) 650 mg [place] Q4H PRN PRN Reason: Fever >101 Hydromorphone HCl (Dilaudid) 0.5 mg IM Q4H PRN PRN Reason: Pain , Severe (7-10) Dextrose/Sodium Chloride (D5/0.45ns) 1,000 mls @ 75 mls/hr IV DIRECT CHERELLE Last Admin: 08/16/20 14:58 Dose: 75 mls/hr Documented by: Levofloxacin/Dextrose (Levaquin 750mg/150ml) 750 mg in 150 mls @ 100 mls/hr IV Q24HR CHERELLE; Protocol Last Admin: 08/16/20 14:58 Dose: 100 mls/hr Documented by: Metronidazole (Flagyl 500 Mg/100 Ml) 500 mg in 100 mls @ 100 mls/hr IV Q8HR CHERELLE; Protocol Ondansetron HCl (Zofran) 4 mg IV Q8H PRN PRN Reason: Nausea And Vomiting Exam Vital Signs Resp 18 08/16/20 02:51 - General physical appearance Positive: well developed, well nourished, no distress - Abdomen Abdomen: Present: soft, tender (mild TTP diffusely; no peritoneal signs), bowel sounds hypoactive, distended Results - Labs 08/16/20 01:56 08/16/20 01:56 Abnormal lab results 08/16/20 08/16/20 Range/Units 01:56 01:56 WBC 13.3 H (4.5-11.0) K/mm3 MCV 97 H (84-94) fl RDW 15.6 H (13.2-15.2) % Seg Neuts % (Manual) 92.0 H (40.0-70.0) % Lymphocytes % (Manual) 7.0 L (13.4-35.0) % Seg Neutrophils # Man 12.2 H (1.8-7.7) K/mm3 Lymphocytes # (Manual) 0.9 L (1.2-5.4) K/mm3 Chloride 97.0 L (98-107) mmol/L Glucose 129 H (75-100) mg/dL Diabetes panel 08/16/20 Range/Units 01:56 Sodium 138 (137-145) mmol/L Potassium 4.2 (3.6-5.0) mmol/L Chloride 97.0 L (98-107) mmol/L Carbon Dioxide 28 (22-30) mmol/L BUN 15 (9-20) mg/dL Creatinine 0.9 (0.8-1.3) mg/dL Glucose 129 H (75-100) mg/dL Calcium 9.3 (8.4-10.2) mg/dL AST 31 (5-40) units/L ALT 17 (7-56) units/L Alkaline Phosphatase 78 (35-129) units/L Total Protein 7.3 (6.3-8.2) g/dL Albumin 4.6 (3.9-5) g/dL Calcium panel 08/16/20 Range/Units 01:56 Calcium 9.3 (8.4-10.2) mg/dL Albumin 4.6 (3.9-5) g/dL Pituitary panel 08/16/20 Range/Units 01:56 Sodium 138 (137-145) mmol/L Potassium 4.2 (3.6-5.0) mmol/L Chloride 97.0 L (98-107) mmol/L Carbon Dioxide 28 (22-30) mmol/L BUN 15 (9-20) mg/dL Creatinine 0.9 (0.8-1.3) mg/dL Glucose 129 H (75-100) mg/dL Calcium 9.3 (8.4-10.2) mg/dL Adrenal panel 08/16/20 Range/Units 01:56 Sodium 138 (137-145) mmol/L Potassium 4.2 (3.6-5.0) mmol/L Chloride 97.0 L (98-107) mmol/L Carbon Dioxide 28 (22-30) mmol/L BUN 15 (9-20) mg/dL Creatinine 0.9 (0.8-1.3) mg/dL Glucose 129 H (75-100) mg/dL Calcium 9.3 (8.4-10.2) mg/dL Total Bilirubin 0.70 (0.1-1.2) mg/dL AST 31 (5-40) units/L ALT 17 (7-56) units/L Alkaline Phosphatase 78 (35-129) units/L Total Protein 7.3 (6.3-8.2) g/dL Albumin 4.6 (3.9-5) g/dL Assessment and Plan Recurrent SBO-- SBFT; NPO/IVF/NGT; serial labs/exams/KUB Repeat CT if no better in 48-72 hrs d/w pt in detail- all questions answered
--- NOTE | 2020-08-16 19:57 | Fluoroscopy Report ---
[place] Small Bowel Follow-Through INDICATION / CLINICAL INFORMATION: sbo. COMPARISON: None available. FINDINGS: TUBES / LINES: Enteric tube terminates in the dilated stomach. Side-port is near the GE junction. BOWEL GAS PATTERN: After 9 hours of imaging contrast does not pass into the large bowel. FREE AIR / EXTRALUMINAL GAS: None seen. ADDITIONAL FINDINGS: No significant additional findings. Fluoroscopy time: 0 fluoroscopy images: 45 IMPRESSION: 1. Contrast does not pass into the large bowel after 9 hours of imaging consistent with a small bowel obstruction. Signer Name: Kel Bella MD Signed: 08/16/2020 7:53 PM Workstation Name: [id number]
[2020-08-17] MEDS: metroNIDAZOLE/NS 500 MG/100 ML 500 MG/100 ML BAG IV SCH ×4 (05:38→21:54)
--- NOTE | 2020-08-17 06:11 | Progress Note ---
Assessment and Plan Results of SBFT noted. Will continue non-op tx at this time and monitor closely. Will repeat CT in 2-3 days and if still SBO, will then operate. Subjective Date of service: 08/17/20 Objective Vital Signs - 12hr 08/16/20 08/16/20 08/17/20 19:32 22:48 03:44 Temperature 98.0 F 98.2 F 97.9 F Pulse Rate 104 H 105 H 104 H Respiratory 18 18 18 Rate Blood Pressure 91/50 104/61 112/71 O2 Sat by Pulse 93 93 93 Oximetry - Labs 08/16/20 01:56 08/16/20 01:56
--- NOTE | 2020-08-17 13:09 | XRay Report ---
ABDOMEN 1 VIEW INDICATION / CLINICAL INFORMATION: sbo. COMPARISON: Small bowel series 08/16/2020; CT abdomen pelvis 08/16/2020 FINDINGS: TUBES / LINES: Gastric tube with radiolucent marker at the gastroesophageal junction. BOWEL GAS PATTERN: Dilated air-filled loops of mid abdominal small bowel. Some decompressed contrast- filled bowel loops are visualized in the right lower quadrant. Some faint contrast is likely present in the hepatic flexure of the colon. FREE AIR / EXTRALUMINAL GAS: None seen. ADDITIONAL FINDINGS: No significant additional findings. IMPRESSION: 1. Gastric tube with radiolucent marker at the gastroesophageal junction. Recommend advancing approxi mately 5 cm prior to use. Consider repeat imaging after advancement. 2. Dilated small bowel loops with contrast visualized in the region of the cecum and ascending colon. Right lower quadrant small bowel loops are decompressed. Findings suggestive of partial small bowel obstruction or ileus. Consider further evaluation and follow-up as warranted. Signer Name: Gary Rutledge MD Signed: 08/17/2020 1:05 PM Workstation Name: [id number]
[2020-08-17] MEDS: D5W/0.45% NACL 1,000 ML IV SCH (14:14)
--- NOTE | 2020-08-17 14:36 | Progress Note ---
Assessment and Plan pSBO--- pt with high NGT output but does have evidence of slow transit of contrast thru to colon and clinically much improved over last 24hrs. Check labs (not done yet today). Check KUB in AM Clamp NGT with small amt clears around tube-- remove in AM and start clears if wanda NGT clamping and continues to have inc flatus Likely to adv to reg diet on Thursday and home Thursday night if cont to improve. Dr. Acosta to cover me this weekend- pt aware. Subjective Date of service: 08/17/20 Patient Reports: Positive: feels better, pain is less, flatus, no bowel movement (high NGT output; +single flatus/sttol smear; pain greatly decreased; ambulating) Objective Vital Signs - 12hr 08/17/20 08/17/20 08/17/20 03:44 07:34 11:39 Temperature 97.9 F 98.0 F 97.9 F Pulse Rate 104 H 109 H 77 Respiratory 18 18 20 Rate Blood Pressure 112/71 126/60 118/69 O2 Sat by Pulse 93 93 95 Oximetry - Abdomen soft, not tender, bowel sounds normal, not distended - Labs 08/16/20 01:56 08/16/20 01:56
[2020-08-17 15:11] LABS: Hematocrit 36.1 % (35.5-45.6); Mean Corpuscular HGB Conc 33 % (32-34); Mean Corpuscular Volume 99 fl (84-94); Platelet Count 307 K/mm3 (140-440); Red Blood Count 3.65 M/mm3 (3.65-5.03); Red Cell Distribution Width 15.6 % (13.2-15.2)
[2020-08-17 15:31] LABS: Calcium 8.9 mg/dL (8.4-10.2)
--- NOTE | 2020-08-17 15:39 | Progress Note ---
Assessment and Plan SBO - Placed on NG suction; now clamped, if tolerates plan to start on clear liquid diet from tomorrow - cont iv fluid, GS following Atrial fib, AC on hold now Arthritis, supportive care hypertension, iv hydralazine to keep SBP <160 hyperlipidemia, statin when can tolerate po DVT Px, SCD Subjective Date of service: 08/17/20 Interval history: Patient seen and examined NPO now, NG placed on clamp denies abdominal pain Objective - Exam Narrative Exam: General appearance: Present: mild distress - EENT Eyes: Present: PERRL, EOM intact ENT: hearing intact, clear oral mucosa - Neck Neck: Present: supple, normal ROM - Respiratory Respiratory effort: normal - Cardiovascular Rhythm: regular Heart Sounds: Present: S1 & S2 - Extremities Extremities: no ischemia, No edema - Abdominal General gastrointestinal: Present: soft, distended. Absent: tender, non- distended, hypoactive bowel sounds, - Rectal Rectal Exam: deferred - Integumentary Integumentary: Present: clear, warm, dry - Musculoskeletal Musculoskeletal: strength equal bilaterally - Neurologic Neurologic: moves all extremities - Constitutional Vitals: Vital Signs - 12hr 08/17/20 08/17/20 08/17/20 03:44 07:34 11:39 Temperature 97.9 F 98.0 F 97.9 F Pulse Rate 104 H 109 H 77 Respiratory 18 18 20 Rate Blood Pressure 112/71 126/60 118/69 O2 Sat by Pulse 93 93 95 Oximetry - Labs CBC & Chem 7: 08/17/20 13:34 08/17/20 13:34 Labs: Abnormal lab results 08/17/20 08/17/20 Range/Units 13:34 13:34 WBC 17.8 H (4.5-11.0) K/mm3 MCV 99 H (84-94) fl MCH 33 H (28-32) pg RDW 15.6 H (13.2-15.2) % Carbon Dioxide 31 H (22-30) mmol/L BUN 32 H (9-20) mg/dL HEART Score - HEART Score Risk factors: 1-2 risk factors Troponin: < normal limit - Critical Actions Critical Actions: 0-3 pts:0.9-1.7%risk of adverse cardiac event.Candidate for discharge
[2020-08-17 16:47] LABS: Anisocytosis Few; Band Neutrophils # (Manual) 0.5 K/mm3; Basophils % (Manual) 0 % (0.0-1.8); Eosinophils % (Manual) 0 % (0.0-4.3); Total Cells Counted 100
[2020-08-17 16:48] LABS: Burr Cells Rare; Ovalocytes Rare; Tear Drop Cells Rare
[2020-08-17 16:49] LABS: Platelet Estimate Consistent w Auto
[2020-08-18] MEDS: D5W/0.45% NACL 1,000 ML IV SCH (00:05)
[2020-08-18] MEDS: metroNIDAZOLE/NS 500 MG/100 ML 500 MG/100 ML BAG IV SCH (06:06)
[2020-08-18 06:39] LABS: Basophils # (Auto) 0.2 K/mm3 (0.0-0.1); Basophils % (Auto) 1.5 % (0.0-1.8); Eosinophils # (Auto) 0.1 K/mm3 (0.0-0.4); Eosinophils % (Auto) 0.7 % (0.0-4.3); Hemoglobin 12.5 gm/dl (11.8-15.2); Lymphocytes # (Auto) 1.8 K/mm3 (1.2-5.4); Lymphocytes % (Auto) 13.7 % (13.4-35.0); Mean Corpuscular HGB Conc 32 % (32-34); Mean Corpuscular Volume 101 fl (84-94); Monocytes # (Auto) 0.2 K/mm3 (0.0-0.8); Monocytes % (Auto) 1.6 % (0.0-7.3); Platelet Count 318 K/mm3 (140-440); Red Blood Count 3.88 M/mm3 (3.65-5.03); Red Cell Distribution Width 15.8 % (13.2-15.2)
[2020-08-18 06:53] LABS: BUN/Creatinine Ratio 26; Blood Urea Nitrogen 23 mg/dL (9-20); Calcium 8.6 mg/dL (8.4-10.2); Hemolysis Index 4
--- NOTE | 2020-08-18 08:06 | XRay Report ---
ABDOMEN 1 VIEW(S) INDICATION / CLINICAL INFORMATION: sbo. COMPARISON: Abdominal radiograph one day prior FINDINGS: TUBES / LINES: Enteric tube remains in place with tip terminating in the gastric body and side hole i n close proximity to the gastroesophageal junction. BOWEL GAS PATTERN: Interval improvement of previously seen dilated loops of small bowel in the centra l abdomen. No obvious sign of obstruction on the current study. FREE AIR / EXTRALUMINAL GAS: None seen. ADDITIONAL FINDINGS: No significant additional findings. IMPRESSION: 1. Interval improvement of previously seen dilated loops of small bowel in the central abdomen. No ob vious sign of obstruction on the current study. Signer Name: Ana Schmidt MD Signed: 08/18/2020 8:02 AM Workstation Name: [id number]
--- NOTE | 2020-08-18 12:00 | Discharge Summary ---
Providers - Providers Date of Admission: 08/16/20 11:28 Date of discharge: 08/18/20 Attending physician: RADHA SUTTON 08/16/20 05:18 Consult to Physician [CONS] Routine Comment: Consulting Provider: PATRICA MOSCOSO Physician Instructions: Reason For Exam: sbo Primary care physician: SKIDDER RUNNER Hospitalization Condition: Good Pertinent studies: Abdominal CT scan which show partial bowel obstruction. Small bowel x-ray showed inability to pass contrast consistent with small bowel obstruction. Hospital course: Patient was admitted for small bowel obstruction. Had abdominal pain unable to pass stool. Patient was brought in placed on NG tube to suction then to intermittent suction. Symptoms resolved with bowel rest and supportive care. Patient now was able to tolerate liquid diet without any difficulty no nausea vomiting. Patient also had large bowel movement yesterday and then some today passing gas no abdominal pain abdomen is no longer tender. Patient stable for discharge follow-up with surgery 7 to 14 days. Disposition: TO HOME OR SELFCARE Core Measure Documentation - Palliative Care Palliative Care/ Comfort Measures: Not Applicable - Core Measures Any of the following diagnoses?: none Exam - Constitutional Vitals: Temp Pulse Resp BP Pulse Ox 98.0 F 122 H 20 123/67 93 08/18/20 11:05 08/18/20 11:05 08/18/20 11:05 08/18/20 11:05 08/18/20 11:05 General appearance: Present: no acute distress, well-nourished - EENT Eyes: Present: PERRL ENT: hearing intact, clear oral mucosa - Neck Neck: Present: supple, normal ROM - Respiratory Respiratory effort: normal Respiratory: bilateral: CTA - Cardiovascular Heart Sounds: Present: S1 & S2. Absent: rub, click - Extremities Extremities: pulses symmetrical, No edema Peripheral Pulses: within normal limits - Abdominal General gastrointestinal: Present: soft, non-tender, non-distended, normal bowel sounds Male genitourinary: Present: normal - Integumentary Integumentary: Present: clear, warm, dry - Musculoskeletal Musculoskeletal: gait normal, strength equal bilaterally - Psychiatric Psychiatric: appropriate mood/affect, intact judgment & insight - Neurologic Neurologic: CNII-XII intact, moves all extremities Plan Activity: no restrictions Diet: low cholesterol Follow up with: PRIMARY CARE, [Primary Care Provider] - 7 Days
[2020-08-18 12:15] VITALS: BP 123/54
== END 2020-08-18 14:10 | disposition home or self-care (01) | DRG 389 ==
LOC: ED 01:36 → 3B-SURG 05:19 → OBSVTOIN 11:28
PROVIDERS: ADMIT Internal Medicine; ATTEND Internal Medicine
DX: K56.690 Other partial intestinal obstruction (principal); R65.10 Systemic inflammatory response syndrome (SIRS) of non-infectious origin without acute organ dysfunction; I10 Essential (primary) hypertension; M19.072 Primary osteoarthritis, left ankle and foot; M19.071 Primary osteoarthritis, right ankle and foot; M19.09 Primary osteoarthritis, other specified site; I48.91 Unspecified atrial fibrillation; Z95.0 Presence of cardiac pacemaker; E78.5 Hyperlipidemia, unspecified; Z88.8 Allergy status to other drugs, medicaments and biological substances
CPT/HCPCS: 36415; 74018; 74177; 74248; 80048; 80053; 85007; 85025; 90471; 96365; 96375; G0378; J1170; J1956; J2405; J7030; Q9963; Q9967

== ENCOUNTER 2020-09-20 09:26 | Observation (INO) | payer MEDICARE ==
[2020-09-20] MEDS ORDERED: ceFAZolin/Water 2 GM/20 ML 0 GM/0 ML SYRINGE IV ONE (09:58)
[2020-09-20] MEDS ORDERED: SODIUM CHLORIDE IRRI 500 ML 500 ML IR ONE (09:58)
[2020-09-20] MEDS ORDERED: LIDOCAINE (1%) 10 MG/1 ML VIAL 20 ML MDV ONE (09:58)
[2020-09-20] MEDS ORDERED: BUPIVACAINE/PF (0.5%) 5 MG/1 ML 30 ML VIAL INFILTRATI ONE (09:58)
[2020-09-20] MEDS ORDERED: SODIUM CHLORIDE 0.45% 1000 ML 1,000 ML IV SCH (10:00)
[2020-09-20] MEDS ORDERED: VANCOMYCIN/NS 1 GM/250 ML 1 GM/250 ML BAG IV NR (10:13)
[2020-09-20] MEDS ORDERED: HYDROmorphone 1 MG/1 ML INJ ONE (10:22)
[2020-09-20] MEDS ORDERED: MIDAZOLAM 2 MG/2 ML INJ ONE (10:23)
[2020-09-20] MEDS ORDERED: propofoL 200 MG/20 ML VIAL IV ONE ×3 (10:23)
[2020-09-20] MEDS ORDERED: KETAMINE/STERILE WATER 50 MG/ML SYRINGE ONE (10:24)
[2020-09-20] MEDS ORDERED: ePHEDrine SULFATE 50 MG/1 ML INJ ONE (10:24)
--- NOTE | 2020-09-20 10:24 | Anesthesia Consultation ---
Anesthesia Consult and Med Hx Date of service: 09/20/20 - Airway Anesthetic Teeth Evaluation: Good (lower), Partials (upper) ROM Head & Neck: Adequate Mental/Hyoid Distance: Adequate Mallampati Class: Class II Intubation Access Assessment: Probably Good - Pulmonary Exam CTA: Yes - Cardiac Exam Cardiac Exam: No Murmur - Pre-Operative Health Status ASA Pre-Surgery Classification: ASA3 Proposed Anesthetic Plan: MAC - Pulmonary Hx Smoking: Yes (former smoker quit >30yrs) Hx Respiratory Symptoms: No - Cardiovascular System Hx Hypertension: Yes Hx Coronary Artery Disease: Yes Hx Cardia Arrhythmia: Yes (afib/flutter) Hx Pacemaker: Yes - Central Nervous System CVA: No - Gastrointestinal Hx Gastroesophageal Reflux Disease: No - Endocrine Hx Renal Disease: No Hx Liver Disease: No Hx Insulin Dependent Diabetes: No Hx Non-Insulin Dependent Diabetes: No Hx Thyroid Disease: No - Other Systems Hx Cancer: Yes (CML) - Additional Comments Anesthesia Medical History Comments: No hx anesthetic complications. Hx DVT. Last dose plavix 09/19/20. Scheduled for pacemaker generator replacement.
--- NOTE | 2020-09-20 10:24 | Anesthesia Day of Surgery ---
Anesthesia Day of Surgery - Day of Surgery Patient Examined: Yes Patient H&P Reviewed: Yes Patient is NPO: Yes
[2020-09-20] MEDS ORDERED: SODIUM CHLORIDE IRRI 1000 ML 1,000 ML, .VANCOMYCIN VIAL 1,000 MG IR NR (10:30)
[2020-09-20] MEDS ORDERED: VANCOMYCIN 1,500 MG in SODIUM CHLORIDE 0.9% 500 ML 500 ML IV SCH (10:30)
[2020-09-20] MEDS ORDERED: LIDOCAINE MPF (2%) 20 MG/1 ML VIAL 5 ML ONE (10:30)
[2020-09-20 10:31] LABS: Basophils % (Auto) 0.5 % (0.0-1.8); Hematocrit 32.7 % (35.5-45.6); Hemoglobin 10.9 gm/dl (11.8-15.2); Lymphocytes # (Auto) 1.2 K/mm3 (1.2-5.4); Mean Corpuscular HGB Conc 33 % (32-34); Mean Corpuscular Volume 101 fl (84-94); Monocytes # (Auto) 0.2 K/mm3 (0.0-0.8); Red Blood Count 3.22 M/mm3 (3.65-5.03)
[2020-09-20 10:42] LABS: Platelet Count 96 K/mm3 (140-440)
[2020-09-20 10:46] LABS: INR 1.03 (0.87-1.13)
[2020-09-20 10:47] LABS: Partial Thromboplastin Time 30.9 Sec. (24.2-36.6)
[2020-09-20 10:53] LABS: Alanine Aminotransferase 12 units/L (7-56); Albumin 4.2 g/dL (3.9-5)
[2020-09-20 11:14] LABS: BUN/Creatinine Ratio 10; Blood Urea Nitrogen 7 mg/dL (9-20); Calcium 8.9 mg/dL (8.4-10.2); Hemolysis Index 4
[2020-09-20] MEDS ORDERED: .VANCOMYCIN VIAL 1,000 MG in SODIUM CHLORIDE IRRI 1000 ML 1,000 ML IRRIGATION ONE (12:55)
--- NOTE | 2020-09-20 14:21 | Post Anesthesia Evaluation ---
- Post Anesthesia Evaluation Patient Participated: Yes Airway Patent: Yes Stable Respiratory Function: Yes Nausea/Vomiting: No Temp > 96.8F: Yes Pain Manageable: Yes Adequeate Hydration: Yes Anesthesia Complications: No
[2020-09-20] MEDS ORDERED: HYDROcodone/ACETAMINOPHEN 5-325 MG TAB PO PRN (14:25)
--- NOTE | 2020-09-20 15:08 | XRay Report ---
CHEST 1 VIEW 09/20/2020 1:51 PM INDICATION / CLINICAL INFORMATION: Pacemaker Postop. COMPARISON: 02/11/2018 FINDINGS: SUPPORT DEVICES: Pacemaker is been placed from a left left approach. There are 2 leads present. One o f these was present previously and the other is new. The tips of both of these leads project over the right ventricle. HEART / MEDIASTINUM: No significant abnormality. LUNGS / PLEURA: There is atelectasis in the left lung base. No pneumothorax. ADDITIONAL FINDINGS: No significant additional findings. IMPRESSION: 1. Pacemaker has been placed from a left approach. No pneumothorax is seen. 2. There is left basilar atelectasis Signer Name: Nadeem Mcconnell MD Signed: 09/20/2020 3:03 PM Workstation Name: [id number]
[2020-09-20] MEDS ORDERED: PRAVASTATIN 80 MG TAB PO SCH (22:00)
[2020-09-20] MEDS ORDERED: atenoloL 50 MG TAB PO SCH (22:00)
[2020-09-20] MEDS ORDERED: VANCOMYCIN/NS 1 GM/250 ML 1 GM/250 ML BAG IV SCH (22:00)
[2020-09-21] MEDS ORDERED: LISINOPRIL 40 MG TAB PO SCH (10:00)
[2020-09-21 11:48] VITALS: BP 117/53
--- NOTE | 2020-09-21 11:56 | Short Stay Summary ---
Short Stay Documentation Date of service: 09/21/20 - History H&P: obtained from office - Allergies and Medications Current Medications: Allergies piperacillin [From Zosyn] Allergy (Verified 09/20/20 15:37) Rash tazobactam [From Zosyn] Allergy (Verified 09/20/20 15:37) Rash Home Medications Medication Instructions Recorded Confirmed Last Taken Type Potassium Chloride [K-Dur] 10 meq PO QDAY 07/26/16 09/20/20 09/19/20 History 10 meq atenoloL [Tenormin] 50 mg PO BID 07/26/16 09/20/20 09/19/20 History 50 mg lisinopriL [Zestril TAB] 40 mg PO QDAY 07/26/16 09/20/20 09/19/20 History 40 mg Clopidogrel [Plavix] 75 mg PO DAILY 09/20/20 09/20/20 09/19/20 History 75 mg Furosemide [Lasix TAB] 20 mg PO DAILY 09/20/20 09/20/20 09/19/20 History 20 mg Imatinib Mesylate [Gleevec] 400 mg PO DAILY 09/20/20 09/20/20 09/19/20 History 400 mg Pravastatin [Pravachol] 80 mg PO HS 09/20/20 09/20/20 09/19/20 History 80 mg Sertraline [Zoloft] 50 mg PO DAILY 09/20/20 09/20/20 09/19/20 History 50 mg Active Medications Hydrocodone Bitart/Acetaminophen (Hydrocodone/Acetaminophen 5-325 Mg Tab) 1 each PO Q6H PRN PRN Reason: Pain, Moderate (4-6) Atenolol (Atenolol 50 Mg Tab) 50 mg PO BID [facility] Last Admin: 09/21/20 09:30 Dose: 50 mg Documented by: Sodium Chloride (Nacl 0.45% 1000 Ml) 1,000 mls @ 50 mls/hr IV DIRECT [facility] Last Admin: 09/20/20 11:05 Dose: 50 mls/hr Documented by: Lisinopril (Lisinopril 40 Mg Tab) 40 mg PO QDAY [facility] Last Admin: 09/21/20 09:30 Dose: 40 mg Documented by: Pravastatin Sodium (Pravastatin 80 Mg Tab) 80 mg PO [facility] Last Admin: 09/20/20 22:11 Dose: 80 mg Documented by: - Physical exam General appearance: no acute distress Integumentary: no rash, no growths, no abnormal pigmentation, other (left pectoralis PPM implantation site pressure dressing removed, site covered with telfa and tegaderm dressing, dressing c/d/i, small amount of old blood noted on telfa, no hematoma noted) Lungs: Clear to auscultation Heart: Regular rate Gastrointestinal: normal, normoactive bowel sounds Extremities: no ischemia, pulses intact, pulses symmetrical Neurological: Normal gait, Normal speech, Strength at 5/5 X4 ext - Brief post op/procedure progress note Date of procedure: 09/20/20 Pre-op diagnosis: SSS Post-op diagnosis: same Procedure: PPM replacement - see dictated operative report Estimated blood loss: none Condition: stable - Hospital course Hospital course: Pt presented for scheduled elective PPM placement - see dictated operative report. He subsequently underwent the procedure and was admitted overnight for observation. He remained clinically and hemodynamically stable throughout admission and is medically stable for discharge today. Post-procedure CXR with NAF, no pneumothorax. Device interrogation this AM revealed normal device function. - Disposition Condition at discharge: Good Disposition: DC-01 TO HOME OR SELFCARE - Discharge Diagnoses (1) SSS (sick sinus syndrome) Status: Chronic (2) Cardiac pacemaker in situ Status: Chronic (3) Atrial fibrillation and flutter Status: Chronic (4) CML (chronic myelocytic leukemia) Status: Chronic (5) History of GI bleed Status: Chronic (6) CAD (coronary artery disease) Status: Chronic (7) NICM (nonischemic cardiomyopathy) Status: Chronic (8) Hypertension Status: Chronic (9) Hyperlipidemia Status: Chronic Short Stay Discharge Plan Activity: other (as per discharge instructions) Diet: low fat, low cholesterol, low salt Wound: other (as per discharge instructions) Follow up with: Abiola IBRAHIM MD [Primary Care Provider] - 7 Days TONY MORENO MD [Staff Physician] - 7 Days ([facility], post- procedure device clinic, 10/02/2020 @ 9:30AM)
== END 2020-09-21 14:43 | disposition home or self-care (01) ==
LOC: CATHLABREC 09:26 → 4A 14:25
PROVIDERS: ADMIT Internal Medicine Cardiovascular Disease; ATTEND Internal Medicine Cardiovascular Disease
DX: I49.5 Sick sinus syndrome (principal); T82.9XXA Unspecified complication of cardiac and vascular prosthetic device, implant and graft, initial encounter; I48.91 Unspecified atrial fibrillation; C92.10 Chronic myeloid leukemia, BCR/ABL-positive, not having achieved remission; I25.10 Atherosclerotic heart disease of native coronary artery without angina pectoris; I42.8 Other cardiomyopathies; I10 Essential (primary) hypertension; E78.5 Hyperlipidemia, unspecified; Z95.0 Presence of cardiac pacemaker
CPT/HCPCS: 33207; 36415; 71045; 80053; 85025; 85610; 85730; 93005; 96365; A9270; C1785; C1892; C1898; G0378; J1170; J2250; J2704; J3370; J3490; J7030; J7040; 87641; J0690; Q9967

== ENCOUNTER 2020-10-02 12:11 | Day surgery (SDC) | payer MEDICARE ==
[2020-10-02 13:55] VITALS: BP 140/84
--- NOTE | 2020-10-02 16:18 | Electrophysiological Studies ---
PROCEDURE: Fluoroscopy. DESCRIPTION OF PROCEDURE: The patient was brought to the hoisting laborer. Images were taken in the AP, WARD, and YEMENI views. Review of the images revealed the right atrial lead was not in a same position as when it was placed on 09/20/2020. This is likely a right ventricular pacemaker lead dislodgement. The right ventricular lead is still in the right ventricle; however, it is no longer at the apex. COMPLICATIONS: None. ASSESSMENT: Right ventricular pacemaker lead dislodgement. PLAN: We will schedule right ventricular lead revision as an outpatient. JOB# [id number] MMW/NTS
== END 2020-10-02 14:35 | disposition home or self-care (01) ==
LOC: CATH 12:11 → CATHLABREC 12:11
PROVIDERS: ATTEND Internal Medicine Cardiovascular Disease
DX: Q21.1 Atrial septal defect (principal); I25.10 Atherosclerotic heart disease of native coronary artery without angina pectoris; I48.3 Typical atrial flutter; C92.10 Chronic myeloid leukemia, BCR/ABL-positive, not having achieved remission; E78.2 Mixed hyperlipidemia; R60.0 Localized edema; I34.0 Nonrheumatic mitral (valve) insufficiency; I42.8 Other cardiomyopathies; E66.09 Other obesity due to excess calories; I11.0 Hypertensive heart disease with heart failure; I48.20 Chronic atrial fibrillation, unspecified; I50.9 Heart failure, unspecified; I26.99 Other pulmonary embolism without acute cor pulmonale; I49.5 Sick sinus syndrome; I07.1 Rheumatic tricuspid insufficiency; I49.3 Ventricular premature depolarization; I47.2 Ventricular tachycardia; G47.30 Sleep apnea, unspecified; M19.90 Unspecified osteoarthritis, unspecified site; F32.9 Major depressive disorder, single episode, unspecified; F41.9 Anxiety disorder, unspecified; Z95.0 Presence of cardiac pacemaker; Z86.718 Personal history of other venous thrombosis and embolism; Z87.19 Personal history of other diseases of the digestive system; Z86.711 Personal history of pulmonary embolism; Z88.0 Allergy status to penicillin; Z79.899 Other long term (current) drug therapy; Z98.41 Cataract extraction status, right eye; Z98.42 Cataract extraction status, left eye; Z98.890 Other specified postprocedural states; Z91.81 History of falling; Z86.2 Personal history of diseases of the blood and blood-forming organs and certain disorders involving the immune mechanism
CPT/HCPCS: 76000

== ENCOUNTER 2020-10-11 09:35 | Observation (INO) | payer MEDICARE ==
[2020-10-11] MEDS ORDERED: SODIUM CHLORIDE IRRI 1000 ML 1,000 ML, .VANCOMYCIN VIAL 1,000 MG IR NR (10:13)
[2020-10-11 10:48] LABS: Basophils # (Auto) 0.1 K/mm3 (0.0-0.1); Basophils % (Auto) 2.3 % (0.0-1.8); Hematocrit 32.7 % (35.5-45.6); Hemoglobin 11.3 gm/dl (11.8-15.2); Lymphocytes # (Auto) 1.1 K/mm3 (1.2-5.4); Lymphocytes % (Auto) 34.2 % (13.4-35.0); Mean Corpuscular HGB Conc 35 % (32-34); Mean Corpuscular Volume 102 fl (84-94); Monocytes # (Auto) 0.4 K/mm3 (0.0-0.8); Monocytes % (Auto) 12.9 % (0.0-7.3); Platelet Count 174 K/mm3 (140-440); Red Blood Count 3.21 M/mm3 (3.65-5.03); Red Cell Distribution Width 17.5 % (13.2-15.2)
--- NOTE | 2020-10-11 10:48 | Anesthesia Consultation ---
Anesthesia Consult and Med Hx Date of service: 10/11/20 - Airway Anesthetic Teeth Evaluation: Partials (upper and lower) ROM Head & Neck: Adequate Mental/Hyoid Distance: Adequate Mallampati Class: Class III Intubation Access Assessment: Possibly Difficult - Pre-Operative Health Status ASA Pre-Surgery Classification: ASA3 - Pulmonary Hx Smoking: Yes (former smoker quit >30yrs) Hx Respiratory Symptoms: No Hx Sleep Apnea: Yes - Cardiovascular System Hx Hypertension: Yes Hx Coronary Artery Disease: Yes Hx Cardia Arrhythmia: Yes (afib/flutter) Hx Pacemaker: Yes Hx Valvular Heart Disease: Yes - Central Nervous System CVA: No - Gastrointestinal Hx Gastroesophageal Reflux Disease: No - Endocrine Hx Renal Disease: No Hx Liver Disease: No Hx Insulin Dependent Diabetes: No Hx Non-Insulin Dependent Diabetes: No Hx Thyroid Disease: No - Hematic Hx Anemia: Yes (IN 2000) - Other Systems Hx Alcohol Use: No Hx Cancer: Yes (CML)
--- NOTE | 2020-10-11 10:48 | Anesthesia Day of Surgery ---
Anesthesia Day of Surgery - Day of Surgery Patient Examined: Yes Patient H&P Reviewed: Yes Patient is NPO: Yes Beta Blockers: Yes
[2020-10-11] MEDS ORDERED: VANCOMYCIN/NS 1 GM/250 ML 1 GM/250 ML BAG IV NR (11:00)
[2020-10-11 11:06] LABS: Alanine Aminotransferase 12 units/L (7-56); Albumin 4.2 g/dL (3.9-5); Blood Urea Nitrogen 9 mg/dL (9-20); Calcium 8.7 mg/dL (8.4-10.2); Hemolysis Index 8
[2020-10-11 11:15] LABS: BUN/Creatinine Ratio 13
[2020-10-11 11:59] LABS: INR 1.09 (0.87-1.13)
[2020-10-11 12:00] LABS: Partial Thromboplastin Time 29.7 Sec. (24.2-36.6)
[2020-10-11] MEDS: SODIUM CHLORIDE 0.45% 1000 ML 1,000 ML IV SCH (12:49)
[2020-10-11] MEDS ORDERED: LIDOCAINE MPF (2%) 20 MG/1 ML VIAL 5 ML ONE (12:51)
[2020-10-11] MEDS ORDERED: HYDROmorphone 1 MG/1 ML INJ ONE (12:52)
[2020-10-11] MEDS ORDERED: MIDAZOLAM 2 MG/2 ML INJ ONE (12:52)
[2020-10-11] MEDS ORDERED: propofoL 200 MG/20 ML VIAL IV ONE ×4 (12:52→12:53)
[2020-10-11] MEDS ORDERED: KETAMINE/STERILE WATER 50 MG/ML SYRINGE ONE (12:53)
[2020-10-11] MEDS ORDERED: ePHEDrine SULFATE 50 MG/1 ML INJ ONE (12:53)
[2020-10-11] MEDS ORDERED: SODIUM CHLORIDE IRRI 500 ML 500 ML IR ONE (13:05)
[2020-10-11] MEDS ORDERED: LIDOCAINE (1%) 10 MG/1 ML VIAL 20 ML MDV ONE (13:06)
[2020-10-11] MEDS ORDERED: BUPIVACAINE/PF (0.5%) 5 MG/1 ML 30 ML VIAL INFILTRATI ONE (13:06)
[2020-10-11] MEDS ORDERED: .VANCOMYCIN VIAL 1,000 MG in SODIUM CHLORIDE IRRI 1000 ML 1,000 ML IRRIGATION ONE (14:58)
--- NOTE | 2020-10-11 16:08 | Post Anesthesia Evaluation ---
- Post Anesthesia Evaluation Patient Participated: Yes Airway Patent: Yes Stable Respiratory Function: Yes Nausea/Vomiting: No Temp > 96.8F: Yes Pain Manageable: Yes Adequeate Hydration: Yes Anesthesia Complications: No Block Receding Appropriately: Not Applicable Patient on Ventilator: No
--- NOTE | 2020-10-11 16:18 | XRay Report ---
CHEST 1 VIEW INDICATION / CLINICAL INFORMATION: Pacemaker Postop. COMPARISON: 09/20/2020 FINDINGS: SUPPORT DEVICES: Left-sided pacemaker HEART / MEDIASTINUM: Cardiomegaly LUNGS / PLEURA: Mild interstitial prominence No pneumothorax. ADDITIONAL FINDINGS: No significant additional findings. IMPRESSION: Left-sided pacemaker leads are superimposed over the expected position of the right ventricle. Inters titial markings are mildly prominent Signer Name: Carlos Hanna MD FACR Signed: 10/11/2020 4:14 PM Workstation Name: [id number]
[2020-10-11] MEDS: HYDROcodone/ACETAMINOPHEN 5-325 MG TAB PO PRN (17:02)
[2020-10-12] MEDS ORDERED: VANCOMYCIN/NS 1 GM/250 ML 1 GM/250 ML BAG IV SCH
[2020-10-12] MEDS: HYDROcodone/ACETAMINOPHEN 5-325 MG TAB PO PRN (00:03)
[2020-10-12 00:55] VITALS: BP 120/60
[2020-10-12] MEDS: SODIUM CHLORIDE 0.45% 1000 ML 1,000 ML IV SCH (06:10)
--- NOTE | 2020-10-12 10:58 | Short Stay Summary ---
Short Stay Documentation Date of service: 10/12/20 - History H&P: obtained from office - Allergies and Medications Current Medications: Allergies piperacillin [From Zosyn] Allergy (Verified 09/20/20 15:37) Rash tazobactam [From Zosyn] Allergy (Verified 09/20/20 15:37) Rash Home Medications Medication Instructions Recorded Confirmed Last Taken Type Potassium Chloride [K-Dur] 10 meq PO QDAY 07/26/16 10/11/20 10/10/20 History 10 meq atenoloL [Tenormin] 50 mg PO BID 07/26/16 10/11/20 10/10/20 History 50 mg lisinopriL [Zestril TAB] 40 mg PO QDAY 07/26/16 10/11/20 10/10/20 History 40 mg Clopidogrel [Plavix] 75 mg PO DAILY 09/20/20 10/11/20 10/10/20 History 75 mg Furosemide [Lasix TAB] 20 mg PO DAILY 09/20/20 10/11/20 10/10/20 History 20 mg Imatinib Mesylate [Gleevec] 400 mg PO DAILY 09/20/20 10/11/20 10/10/20 History 400 mg Pravastatin [Pravachol] 80 mg PO HS 09/20/20 10/11/20 10/10/20 History 80 mg Sertraline [Zoloft] 50 mg PO DAILY 09/20/20 10/11/20 10/10/20 History 50 mg Doxycycline Hyclate [Doxycycline 100 mg PO Q12HR #10 tab 10/11/20 Unknown Rx Hyclate TAB] Active Medications Hydrocodone Bitart/Acetaminophen (Hydrocodone/Acetaminophen 5-325 Mg Tab) 1 each PO Q6H PRN PRN Reason: Pain, Moderate (4-6) Last Admin: 10/12/20 00:03 Dose: 1 each Documented by: Sodium Chloride (Nacl 0.45% 1000 Ml) 1,000 mls @ 50 mls/hr IV DIRECT [facility] Last Admin: 10/12/20 06:10 Dose: 50 mls/hr Documented by: - Physical exam Integumentary: other (left pectoralis PPM implantation site pressure dressing removed, some slight redness associated with presure dressing tape noted, telfa and tedagerm present, site c/d/i with minimal old blood noted, no evidence of active bleeding or hematoma noted) - Brief post op/procedure progress note Date of procedure: 10/11/20 Pre-op diagnosis: SSS Post-op diagnosis: same Procedure: Pacemaker lead revision - see dictated operative report Estimated blood loss: none Condition: stable - Hospital course Hospital course: Pt presented for scheduled elective pacemaker lead revision and subsequently successfully underwent the procedure. He was admitted overnight for observation. He has remained clinically stable throughout admission and is medically stable for discharge today.Post procedure CXR with NAF, no pneumothorax. Device inter rogation this AM showed normal device function. - Disposition Condition at discharge: Good Disposition: DC-01 TO HOME OR SELFCARE - Discharge Diagnoses (1) SSS (sick sinus syndrome) Status: Chronic (2) Cardiac pacemaker in situ Status: Chronic (3) Atrial fibrillation and flutter Status: Chronic (4) CML (chronic myelocytic leukemia) Status: Chronic (5) History of GI bleed Status: Chronic (6) CAD (coronary artery disease) Status: Chronic (7) NICM (nonischemic cardiomyopathy) Status: Chronic (8) Hyperlipidemia Status: Chronic (9) Hypertension Status: Chronic Short Stay Discharge Plan Activity: advance as tolerated Diet: low fat, low cholesterol, low salt Wound: open to air, keep clean and dry, per your surgeon's advice Follow up with: Abiola IBRAHIM MD [Primary Care Provider] - 7 Days TONY MORENO MD [Staff Physician] - 7 Days ([facility], post- procedure device clinic, 10/24/2020 @ 1:00PM) Prescriptions: Doxycycline Hyclate [Doxycycline Hyclate TAB] 100 mg PO Q12HR #10 tab
== END 2020-10-12 14:30 | disposition home or self-care (01) ==
LOC: CATHLABREC 09:35 → 4A 15:39
PROVIDERS: ADMIT Internal Medicine Cardiovascular Disease; ATTEND Internal Medicine Cardiovascular Disease
DX: I49.5 Sick sinus syndrome (principal); T82.110A Breakdown (mechanical) of cardiac electrode, initial encounter; C92.10 Chronic myeloid leukemia, BCR/ABL-positive, not having achieved remission; D61.818 Other pancytopenia; I48.91 Unspecified atrial fibrillation; I48.92 Unspecified atrial flutter; I25.10 Atherosclerotic heart disease of native coronary artery without angina pectoris; I42.8 Other cardiomyopathies; I10 Essential (primary) hypertension; E78.5 Hyperlipidemia, unspecified; Z79.899 Other long term (current) drug therapy; Z98.890 Other specified postprocedural states
CPT/HCPCS: 33215; 36415; 71045; 80053; 85025; 85610; 85730; 93005; 96361; 96365; 96366; G0378; J1170; J2250; J2704; J3370; J3490; J7030; 80048

== ENCOUNTER 2021-03-26 13:37 | Emergency (ER) | payer MEDICARE | END 2021-03-26 15:00 | disposition left against medical advice (07) | LOC: ED 13:37 | DX: R50.9 Fever, unspecified (principal); Z53.21 Procedure and treatment not carried out due to patient leaving prior to being seen by health care provider ==

== ENCOUNTER 2021-03-28 12:59 | Outpatient (CLI) | payer MEDICARE ==
[2021-03-28 13:53] LABS: Bacteria,Urine 1+ /HPF (Negative); Bilirubin,Urine NEG (Negative); Blood,Urine NEG (Negative); Color,Urine Yellow (Yellow); Protein,Urine <15 mg/dL mg/dL (Negative); Urobilinogen,Urine < 2.0 mg/dL (<2.0)
[2021-03-28 13:58] LABS: Alanine Aminotransferase 32 units/L (7-56); Albumin 4.3 g/dL (3.9-5); Blood Urea Nitrogen 8 mg/dL (9-20); Calcium 8.9 mg/dL (8.4-10.2); Hemolysis Index 4
[2021-03-28 14:42] LABS: BUN/Creatinine Ratio 11
[2021-03-28 15:17] LABS: Basophils % (Auto) 0.7 % (0.0-1.8); Eosinophils % (Auto) 0.1 % (0.0-4.3); Hemoglobin 11.3 gm/dl (11.8-15.2); Lymphocytes # (Auto) 1.4 K/mm3 (1.2-5.4); Mean Corpuscular HGB Conc 34 % (32-34); Mean Corpuscular Volume 105 fl (84-94); Monocytes # (Auto) 0.7 K/mm3 (0.0-0.8); Monocytes % (Auto) 11.7 % (0.0-7.3); Platelet Count 176 K/mm3 (140-440); Red Blood Count 3.14 M/mm3 (3.65-5.03); Red Cell Distribution Width 14.5 % (13.2-15.2)
[2021-03-28 15:20] LABS: Erythrocyte Sedimentation Rate 32 mm/Hr (0-20)
--- NOTE | 2021-03-28 16:04 | XRay Report ---
CHEST 2 VIEWS INDICATION / CLINICAL INFORMATION: CHEST PAIN.. COMPARISON: 10/11/2020 FINDINGS: SUPPORT DEVICES: Stable position of cardiac pacemaker leads. HEART / MEDIASTINUM: Stable mild cardiomegaly. LUNGS / PLEURA: No significant pulmonary or pleural abnormality. No pneumothorax. ADDITIONAL FINDINGS: No significant additional findings. IMPRESSION: 1. No acute findings. Signer Name: Harlan Gibson MD Signed: 03/28/2021 3:59 PM Workstation Name: [id number]
== END 2021-03-28 13:00 | disposition home or self-care (01) ==
LOC: XRAY 12:59
PROVIDERS: ATTEND Internal Medicine
DX: R07.9 Chest pain, unspecified (principal); I51.7 Cardiomegaly; R50.9 Fever, unspecified
CPT/HCPCS: 36415; 71046; 80053; 81001; 85025; 85652; 86140; 87040

== ENCOUNTER 2021-03-29 13:58 | Outpatient (CLI) | payer MEDICARE ==
--- NOTE | 2021-03-29 15:57 | Vascular Lab Report ---
DUPLEX DOPPLER LOWER EXTREMITY VEINS, BILATERAL INDICATION / CLINICAL INFORMATION: PAIN AND SWELLING LOWER EXT. TECHNIQUE: Duplex doppler imaging was performed through the veins of both lower extremities using lolly ous compression and other maneuvers. COMPARISON: None available. FINDINGS: RIGHT COMMON FEMORAL VEIN: Negative. RIGHT FEMORAL VEIN: Negative. RIGHT POPLITEAL VEIN: Negative. RIGHT CALF VEINS: Negative. LEFT COMMON FEMORAL VEIN: Negative. LEFT FEMORAL VEIN: Negative. LEFT POPLITEAL VEIN: Negative. LEFT CALF VEINS: Negative. ADDITIONAL FINDINGS: 2.3 cm fluid collection in the right popliteal fossa. IMPRESSION: 1. No sonographic evidence for DVT in either lower extremity. Signer Name: Ken Abraham MD Signed: 03/29/2021 3:53 PM Workstation Name: [email or web address]
== END 2021-03-29 13:59 | disposition home or self-care (01) ==
LOC: VAS 13:58
PROVIDERS: ATTEND Internal Medicine
DX: M79.604 Pain in right leg (principal); M79.605 Pain in left leg; M79.89 Other specified soft tissue disorders
CPT/HCPCS: 93970

== ENCOUNTER 2021-03-29 20:44 | Observation (INO) | payer MEDICARE ==
--- NOTE | 2021-03-29 21:59 | Emergency Department Report ---
ED Fever HPI - General Chief Complaint: Fever Stated Complaint: HIGH FEVER CHILLS SWEATS PUI?: No Time Seen by Provider: 03/29/21 21:53 Source: patient, family, RN notes reviewed, old records Exam Limitations: no limitations - History of Present Illness Initial Comments: Patient is an 80-year-old male who presents emergency room with complaints of high fever, chills, sweats. Patient states that he has had fever since February 18. Patient states he seen his primary care multiple times. Patient states that he has had multiple lab draws and diagnostics done. Patient states that his sweats happen after he takes Tylenol. Patient states that his fever got up to 103. Patient also complains of myalgias and muscle aches. Patient states he had an ultrasound of bilateral lower extremities to rule out DVT since patient had muscle pains when examined by his primary care in his legs. Patient states he also had a chest x-ray done by his primary care. Patient states that he had labs done and blood cultures done with his primary care. Patient states that all of his diagnostics and labs were done at this hospital but ordered by his primary care. Patient states that his fever has been persistent every day responds well to Tylenol but comes right back after the effects of Tylenol have worn off. Patient had 103 fever today and is why he came to the emergency room to be evaluated. Patient consulted with his primary care prior to come to the emergency room his primary care agree with coming to the hospital to be evaluated. Patient denies cough. Patient denies chest pain. Patient denies shortness of breath and patient denies abdominal pain. Patient denies diarrhea. Patient denies vomiting. Patient denies nausea. Patient denies sore throat. Patient denies syncope. Patient denies neck pain. Patient denies neck stiffness. Patient denies visual changes. Patient states he is not vaccinated and does not plan to become vaccinated for COVID-19. Patient denies recent travel. Patient denies recent international travel. Patient denies exposure to the novel coronavirus. Patient denies sick contacts. Patient denies loss of smell. Patient denies cough. Patient denies diarrhea. Patient denies coming in contact with anybody with symptoms of the novel coronavirus. I reviewed the labs from 03/28/2021. Patient had a normal WBC and and the chemistry was essentially unremarkable except for elevated C-reactive protein. Patient's UA was negative. I reviewed the chest x-ray from 03/28/2021. Patient chest x-ray shows no acute findings. I reviewed the ultrasound of the lower extremities from 03/28/2021 and the ultrasound shows no DVTs. Timing/Duration: week Fever Severity/Quality: greater than 102 F Fever Therapy [employer]: Tylenol Associated Symptoms: muscle aches. denies: abdominal pain, chest pain, confusion, cough, diaphoresis, headache, nausea/vomiting, rash, shortness of breath, sore throat, stiff neck, syncope, weakness ED Review of Systems ROS: Stated complaint: HIGH FEVER CHILLS SWEATS Other details as noted in HPI Constitutional: chills, fever Eyes: denies: eye pain, eye discharge, vision change ENT: denies: ear pain, throat pain Respiratory: denies: cough, shortness of breath, wheezing Cardiovascular: denies: chest pain, palpitations Endocrine: no symptoms reported Gastrointestinal: denies: abdominal pain, nausea, diarrhea Genitourinary: denies: urgency, dysuria Musculoskeletal: as per HPI, myalgia. denies: back pain, joint swelling, arthralgia Skin: denies: rash, lesions Neurological: denies: headache, weakness, paresthesias Psychiatric: denies: anxiety, depression Hematological/Lymphatic: denies: easy bleeding, easy bruising ED Past Medical Hx - Past Medical History Previous Medical History?: Yes Hx Hypertension: Yes Hx Liver Disease: No Hx Renal Disease: No Hx Arthritis: Yes (ankles and back) Hx HIV: No Additional medical history: abd surgery colostomy with reversal. Atrial fibrillation. high cholesterol. Pacemaker - Surgical History Past Surgical History?: Yes Hx Pacemaker: Yes Additional Surgical History: Colon resection - Family History Family history: no significant - Social History Smoking Status: Former Smoker Substance Use Type: None - Medications Home Medications: Home Medications Medication Instructions Recorded Confirmed Last Taken Type Potassium Chloride [K-Dur] 10 meq PO QDAY 07/26/16 10/11/20 10/10/20 History 10 meq atenoloL [Tenormin] 50 mg PO BID 07/26/16 10/11/20 10/10/20 History 50 mg lisinopriL [Zestril TAB] 40 mg PO QDAY 07/26/16 10/11/20 10/10/20 History 40 mg Clopidogrel [Plavix] 75 mg PO DAILY 09/20/20 10/11/20 10/10/20 History 75 mg Furosemide [Lasix TAB] 20 mg PO DAILY 09/20/20 10/11/20 10/10/20 History 20 mg Imatinib Mesylate [Gleevec] 400 mg PO DAILY 09/20/20 10/11/20 10/10/20 History 400 mg Pravastatin [Pravachol] 80 mg PO HS 09/20/20 10/11/20 10/10/20 History 80 mg Sertraline [Zoloft] 50 mg PO DAILY 09/20/20 10/11/20 10/10/20 History 50 mg Doxycycline Hyclate [Doxycycline 100 mg PO Q12HR #10 tab 10/11/20 Unknown Rx Hyclate TAB] ED Physical Exam - General Limitations: No Limitations General appearance: alert, in no apparent distress - Head Head exam: Present: atraumatic, normocephalic - Eye Eye exam: Present: normal appearance - ENT ENT exam: Present: mucous membranes moist - Neck Neck exam: Present: normal inspection - Respiratory Respiratory exam: Present: normal lung sounds bilaterally. Absent: respiratory distress - Cardiovascular Cardiovascular Exam: Present: regular rate, normal rhythm. Absent: systolic murmur, diastolic murmur, rubs, gallop - GI/Abdominal GI/Abdominal exam: Present: soft, normal bowel sounds - Rectal Rectal exam: Present: deferred - Extremities Exam Extremities exam: Present: normal inspection - Back Exam Back exam: Present: normal inspection - Neurological Exam Neurological exam: Present: alert, oriented X3 - Psychiatric Psychiatric exam: Present: normal affect, normal mood - Skin Skin exam: Present: warm, dry, intact, normal color. Absent: rash ED Course Vital Signs 03/29/21 03/29/21 03/29/21 21:52 22:00 22:16 Temperature 101.1 F H Pulse Rate 90 92 H 88 Respiratory 19 23 36 H Rate Blood Pressure 132/63 128/65 128/65 O2 Sat by Pulse 96 97 95 Oximetry 03/29/21 03/29/21 03/29/21 22:30 22:46 23:00 Temperature Pulse Rate 89 80 94 H Respiratory 19 24 27 H Rate Blood Pressure 128/57 128/57 139/56 O2 Sat by Pulse 95 96 96 Oximetry 03/29/21 03/29/21 03/29/21 23:16 23:30 23:46 Temperature Pulse Rate 93 H 91 H 95 H Respiratory 23 18 16 Rate Blood Pressure 139/56 130/59 130/59 O2 Sat by Pulse 97 95 97 Oximetry - Reevaluation(s) Reevaluation #1: I discussed all results with patient. I discussed plan of care with patient. Patient agrees with plan of care and admission. Patient to be admitted to the hospitalist service. 03/30/21 00:46 - Consultations Consultation #1: ID consulted. 03/30/21 00:46 Consultation #2: Hospitalist consulted for admission. Hospitalist to admit patient. 03/30/21 00:46 ED Medical Decision Making - Lab Data Result diagrams: 03/29/21 22:41 03/29/21 22:41 - Radiology Data Radiology results: report reviewed, image reviewed interpreted by me: Chest x-ray: Left-sided pneumonia, no pneumothorax, no foreign body, no osseous findings, Chest single view INDICATION: Chest pain IMPRESSION: Small left pleural effusion and tiny right pleural effusion. The heart is mildly enlarged. - Medical Decision Making Patient is a 80-year-old male presents emergency room with complaints of fever for 9 days. Patient's fever got up to 103.2 today and ask when the patient called his primary care examiner told come to the hospital be evaluated. Rex mackenzie has been being worked up as an outpatient by his primary care. Patient also complained of myalgias and muscle aches. Patient primary care did labs, chest x-ray and a DVT study on the lower extremities on March 28, 2021.. Patient's chest x-ray was completely normal and patient's lower extremity ultrasound was negative for DVTs and his labs were essentially unremarkable except for an elevated CRP. Patient had a repeat chest x-ray today and it shows left-sided pneumonia. Patient had labs done which showed anemia. Patient given IV fluids in the ER. Patient given Tylenol here for fever. Patient also given Zithromax for new onset pneumonia. Patient clinical scenario is concerning for a possible COVID-19 infection. Patient had a Covid panel ordered. ID was consulted. Patient admitted to the hospital service for evaluation treatment. Critical care time documented due to the multiple reassessments, prolonged time at the bedside, interpretation of diagnostics and labs. - Differential Diagnosis Pneumonia, PUI, Covid, fever, UTI Critical Care Time: Yes Critical care time in (mins) excluding proc time.: 35 Critical care attestation.: If time is entered above; I have spent that time in minutes in the direct care of this critically ill patient, excluding procedure time. Critical Care Time: 35 minutes ED Disposition Clinical Impression: Pleural effusion, Person under investigation for COVID-19 Fever Qualifiers: Fever type: unspecified Qualified Code(s): R50.9 - Fever, unspecified Pneumonia Qualifiers: Pneumonia type: due to unspecified organism Laterality: left Lung location: unspecified part of lung Qualified Code(s): J18.9 - Pneumonia, unspecified organism Anemia Qualifiers: Anemia type: unspecified type Qualified Code(s): D64.9 - Anemia, unspecified Disposition: DC-09 OP ADMIT IP TO THIS HOSP Is pt being admited?: Yes Does the pt Need Aspirin: No Condition: Critical Instructions: Bacterial Pneumonia (ED) Time of Disposition: 00:46
[2021-03-29] MEDS ORDERED: SODIUM CHLORIDE 0.9% 1000 ML 1,000 ML IV ONE (22:00)
--- NOTE | 2021-03-29 22:26 | XRay Report ---
Chest single view INDICATION: Chest pain IMPRESSION: Small left pleural effusion and tiny right pleural effusion. The heart is mildly enlarged . Signer Name: Rakesh Gonzalez MD Signed: 03/29/2021 10:21 PM Workstation Name: [id number]
[2021-03-29 22:58] LABS: Basophils % (Auto) 0.6 % (0.0-1.8); Eosinophils % (Auto) 0.1 % (0.0-4.3); Hematocrit 29.5 % (35.5-45.6); Hemoglobin 10.2 gm/dl (11.8-15.2); Lymphocytes # (Auto) 1.1 K/mm3 (1.2-5.4); Lymphocytes % (Auto) 21.3 % (13.4-35.0); Mean Corpuscular HGB Conc 35 % (32-34); Mean Corpuscular Volume 106 fl (84-94); Monocytes # (Auto) 0.7 K/mm3 (0.0-0.8); Monocytes % (Auto) 13.5 % (0.0-7.3); Platelet Count 171 K/mm3 (140-440); Red Blood Count 2.79 M/mm3 (3.65-5.03); Red Cell Distribution Width 14.1 % (13.2-15.2)
[2021-03-29 23:20] LABS: Alanine Aminotransferase 37 units/L (7-56); Albumin 3.8 g/dL (3.9-5); BUN/Creatinine Ratio 14; Blood Urea Nitrogen 11 mg/dL (9-20); Calcium 8.1 mg/dL (8.4-10.2); Hemolysis Index 3
[2021-03-30 00:05] LABS: Bilirubin,Urine NEG (Negative); Blood,Urine NEG (Negative); Color,Urine Yellow (Yellow); Mucus,Urine FEW /HPF; Urobilinogen,Urine < 2.0 mg/dL (<2.0)
[2021-03-30] MEDS ORDERED: ACETAMINOPHEN 325 MG TAB PO ONE (00:42)
[2021-03-30] MEDS ORDERED: AZITHROMYCIN/NS 500 MG/250 ML 500 MG/250 ML BAG IV ONE (00:43)
[2021-03-30] MEDS ORDERED: dexAMETHasone 4 MG/ML VIAL IV ONE (00:43)
--- NOTE | 2021-03-30 02:17 | History and Physical Report ---
History of Present Illness Date of examination: 03/30/21 Date of admission: 03/30/21 00:52 Chief complaint: Fever History of present illness: Patient is an 80-year-old male who presents emergency room with complaints of high fever, chills, sweats. Patient states that he has had fever since February 18. Patient states he seen his primary care multiple times. Patient states that he has had multiple lab draws and diagnostics done. Patient states that his sweats happen after he takes Tylenol. Patient states that his fever got up to 103. Patient also complains of myalgias and muscle aches. Patient states he had an ultrasound of bilateral lower extremities to rule out DVT since patient had muscle pains when examined by his primary care in his legs. Patient states he also had a chest x-ray done by his primary care. ED work-up WBC 5.0, hemoglobin 10.2, platelets 171, D-dimer 1709.33, sodium 133, potassium 4.1, creatinine 0.8, serum glucose 113, calcium 8.1, serum albumin 3.8. Checks x-ray showed a small left pleural effusion and tiny right pleural effusion the heart is mildly enlarged. Patient seen in ED at bedside. Patient came with shortness of breath fever he said ongoing for 9 days. Patient was having Patient alert oriented x3 lungs clear. I reviewed patient chart, vital signs medication record patient has a history of GI bleed, bowel resection with colostomy. Colostomy has been revised. Patient also has a history of high blood pressure and high cholesterol. Patient also had pacemaker on the skin cancer surgery x3. Patient is on room air. 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 Past History Past Medical History: anemia, hypertension, hyperlipidemia, other (GI bleed) Past Surgical History: bowel surgery (GI bleed, bowel obstruction with colostomy that has been reversed) Social history: lives with family Family history: cancer, diabetes, stroke Medications and Allergies Allergies Allergy/AdvReac Type Severity Reaction Status Date / Time piperacillin [From Zosyn] Allergy Rash Verified 09/20/20 15:37 tazobactam [From Zosyn] Allergy Rash Verified 09/20/20 15:37 Home Medications Medication Instructions Recorded Confirmed Last Taken Type Potassium Chloride [K-Dur] 10 meq PO QDAY 07/26/16 10/11/20 10/10/20 History 10 meq atenoloL [Tenormin] 50 mg PO BID 07/26/16 10/11/20 10/10/20 History 50 mg lisinopriL [Zestril TAB] 40 mg PO QDAY 07/26/16 10/11/20 10/10/20 History 40 mg Clopidogrel [Plavix] 75 mg PO DAILY 09/20/20 10/11/20 10/10/20 History 75 mg Furosemide [Lasix TAB] 20 mg PO DAILY 09/20/20 10/11/20 10/10/20 History 20 mg Imatinib Mesylate [Gleevec] 400 mg PO DAILY 09/20/20 10/11/20 10/10/20 History 400 mg Pravastatin [Pravachol] 80 mg PO HS 09/20/20 10/11/20 10/10/20 History 80 mg Sertraline [Zoloft] 50 mg PO DAILY 09/20/20 10/11/20 10/10/20 History 50 mg Doxycycline Hyclate [Doxycycline 100 mg PO Q12HR #10 tab 10/11/20 Unknown Rx Hyclate TAB] Review of Systems Constitutional: fatigue, weakness Ears, nose, mouth and throat: no epistaxis Cardiovascular: shortness of breath, high blood pressure Respiratory: no congestion, no wheezing Gastrointestinal: no BRBPR, no melena Rectal: no itching, no hemorrhoids Integumentary: no rash, no pruritis Neurological: no convulsions Hematologic/Lymphatic: no easy bruising, no easy bleeding, no lymphadenopathy, no lymphedema Allergic/Immunologic: no urticaria Exam - Constitutional Vitals: Temp Pulse Resp BP Pulse Ox 101.1 F H 90 15 147/75 97 03/29/21 21:52 03/30/21 01:30 03/30/21 01:30 03/30/21 01:30 03/30/21 01:30 General appearance: Present: mild distress, well-nourished - EENT Eyes: Present: PERRL ENT: hearing intact, clear oral mucosa - Neck Neck: Present: supple, normal ROM - Respiratory Respiratory effort: normal Respiratory: bilateral: CTA - Cardiovascular Heart Sounds: Present: S1 & S2. Absent: rub, click - Extremities Extremities: pulses symmetrical, No edema Peripheral Pulses: within normal limits - Abdominal General gastrointestinal: Present: soft, non-tender, non-distended, normal bowel sounds Male genitourinary: Present: normal - Integumentary Integumentary: Present: clear, warm, dry - Musculoskeletal Musculoskeletal: strength equal bilaterally, generalized weakness - Psychiatric Psychiatric: appropriate mood/affect, intact judgment & insight - Neurologic Neurologic: CNII-XII intact, moves all extremities - Allied Health Allied health notes reviewed: nursing, PT Results - Labs CBC & Chem 7: 03/29/21 22:41 03/30/21 01:05 Labs: Abnormal lab results 03/29/21 03/29/21 03/30/21 Range/Units 22:41 22:41 01:05 RBC 2.79 L (3.65-5.03) M/mm3 Hgb 10.2 L (11.8-15.2) gm/dl Hct 29.5 L (35.5-45.6) % MCV 106 H (84-94) fl MCH 37 H (28-32) pg MCHC 35 H (32-34) % White % (Auto) 13.5 H (0.0-7.3) % Lymph # (Auto) 1.1 L (1.2-5.4) K/mm3 D-Dimer 1709.23 H (0-234) ng/mlDDU Sodium 132 L (137-145) mmol/L Chloride 96.0 L (98-107) mmol/L Glucose 103 H (75-100) mg/dL Calcium 8.1 L (8.4-10.2) mg/dL AST 55 H (5-40) units/L Total Protein 6.2 L (6.3-8.2) g/dL Albumin 3.8 L (3.9-5) g/dL Assessment and Plan - Patient Problems (1) Fever Current Visit: Yes Status: Acute Qualifiers: Fever type: unspecified Qualified Code(s): R50.9 - Fever, unspecified Plan to address problem: Patient came with fever. Patient said I am he had been having fever for 9 days Chest x-ray showed pneumonia As needed Tylenol Blood culture and starts empiric antibiotics (2) Person under investigation for COVID-19 Current Visit: Yes Status: Acute Plan to address problem: Isolation with Covid protocol Respiratory care as needed bronchodilator Continue empiric antibiotics (3) Pleural effusion Current Visit: Yes Status: Acute Plan to address problem: Likely secondary to pneumonia Checks x-ray shows pleural effusion Continue empiric antibiotic Patient is on room air (4) Pneumonia Current Visit: Yes Status: Acute Qualifiers: Pneumonia type: due to unspecified organism Laterality: left Lung location: unspecified part of lung Qualified Code(s): J18.9 - Pneumonia, unspecified organism Plan to address problem: Unknown cause bacterial/viral Patient denies Covid shotrule out Covid ID consulted will follow up with plan of care (5) CHF (congestive heart failure) Current Visit: No Status: Acute Plan to address problem: Patient with history of CHF and A. fib Continue cardioprotective measures Antiplatelet review and statin (6) Elevated d-dimer Current Visit: Yes Status: Acute Plan to address problem: CT of the chest Bilateral leg ultrasoundfollow-up with results (7) DVT prophylaxis Current Visit: Yes Status: Acute Plan to address problem: Lovenox subcutaneous (8) Full code status Current Visit: Yes Status: Acute
[2021-03-30] MEDS ORDERED: hydrALAZINE 20 MG/1 ML INJ IV PRN (02:48)
[2021-03-30] MEDS ORDERED: traMADol 50 MG TAB PO PRN (02:48)
[2021-03-30] MEDS ORDERED: traZODone 50 MG TAB PO PRN (02:48)
[2021-03-30] MEDS ORDERED: cefTRIAXone/NS 1 GM/50 ML 1 GM/50 ML BAG IV SCH (03:00)
[2021-03-30] MEDS ORDERED: AZITHROMYCIN/NS 500 MG/250 ML 500 MG/250 ML BAG IV SCH (03:00)
[2021-03-30] MEDS ORDERED: ACETAMINOPHEN 325 MG TAB ONE (03:26)
[2021-03-30 04:33] LABS: C-Reactive Protein 6.9 mg/dL (0.00-1.30)
--- NOTE | 2021-03-30 04:49 | Cat Scan Report ---
CTA CHEST WITH CONTRAST INDICATION / CLINICAL INFORMATION: Elevated D-dimer. TECHNIQUE: Axial CT images were obtained through the chest after injection of 100 cc of Omnipaque 350 IV contrast. 3 plane MIP and/or 3D reconstructions were produced. All CT scans at this location are performed using CT dose reduction for ALARA by means of automated exposure control. COMPARISON: 02/08/2018 FINDINGS: PULMONARY ARTERIES: No pulmonary emboli. THORACIC AORTA: Mild atherosclerotic calcification without acute abnormality. HEART: Heart is mildly enlarged. CORONARY ARTERY CALCIFICATION: Moderate. MEDIASTINUM / GI: No acute abnormality. There is a stable low-density nodule in the anterior medias tinum which measures fat density PLEURA: There are small bilateral pleural effusions. No pneumothorax. LUNGS: There is a 1 cm pleural-based nodular density in the right lower lobe, series 2 image 92. This appears to flatten along the pleural surface and may represent focal atelectasis or scar. ADDITIONAL FINDINGS: None. UPPER ABDOMEN: No acute findings. SKELETAL STRUCTURES: No significant osseous abnormality. IMPRESSION: 1. No CT evidence for pulmonary embolism. 2. Single incidental pulmonary nodule(s) in the right lower lobe measuring 10 mm with solid character istics. Recommendation according to Fleischner Society 2017 Guidelines: Low Risk or High Risk Patient : Consider CT at 3 months, PET/CT, or tissue sampling. Signer Name: Nadeem Mcconnell MD Signed: 03/30/2021 4:45 AM Workstation Name: [id number]
--- NOTE | 2021-03-30 08:17 | Progress Note ---
Assessment and Plan Assessment and plan: (1) Fever Patient on presentation with fever. Chest x-ray showed pneumonia As needed Tylenol Blood culture and starts empiric antibiotics Awaiting COVID 19 PCR result. (2) Person under investigation for COVID-19 Isolation with Covid protocol Respiratory care as needed bronchodilator Continue empiric antibiotics Infectious disease consulted: recommended BCx, UA, rocephin azithromycin, fungitell, Q fever serologies, Histoplasma Ag (3) Pulmonary nodule 10 mm pulmonary nodule identified in RLL. pulmonary consulted. (4) Pleural effusion Likely secondary to pneumonia Checks x-ray shows pleural effusion Continue empiric antibiotic Patient is on room air (5) Pneumonia Unknown cause bacterial/viral Patient denies Covid shotrule out Covid ID consulted will follow up with plan of care (6) CHF (congestive heart failure) Patient with history of CHF and A. fib Continue cardioprotective measures Antiplatelet review and statin (7) Elevated d-dimer CT of the chest Bilateral leg ultrasoundfollow-up with results (8) DVT prophylaxis Lovenox subcutaneous (9) Full code status Total Time Spent with Patient (Minutes): 25 History Interval history: Patient doing well on encounter. No complaints. On room air. Denies any fevers, chills, n/v/d. Still does not believe in covid vaccination however educated patient on the benefits of being vaccinated in the future. Hospitalist Physical - Constitutional Vitals: Temp Pulse Resp BP Pulse Ox 99.6 F 89 18 128/72 92 03/30/21 06:22 03/30/21 06:22 03/30/21 06:22 03/30/21 06:22 03/30/21 06:22 General appearance: Present: no acute distress - EENT Eyes: Present: PERRL, EOM intact ENT: hearing intact, clear oral mucosa, dentition normal - Neck Neck: Present: supple, normal ROM - Respiratory Respiratory effort: other Respiratory: bilateral: diminished - Cardiovascular Rhythm: regular - Extremities Extremities: no ischemia, No edema, normal color - Abdominal General gastrointestinal: soft, non-tender, non-distended - Integumentary Integumentary: Present: clear, warm, dry - Psychiatric Psychiatric: appropriate mood/affect, memory intact, cooperative - Neurologic Neurologic: CNII-XII intact, moves all extremities, gait normal Results - Labs CBC & Chem 7: 03/29/21 22:41 03/30/21 01:05 Labs: Laboratory Last Values WBC 5.0 K/mm3 (4.5-11.0) 03/29/21 22:41 RBC 2.79 M/mm3 (3.65-5.03) L 03/29/21 22:41 Hgb 10.2 gm/dl (11.8-15.2) L 03/29/21 22:41 Hct 29.5 % (35.5-45.6) L 03/29/21 22:41 MCV 106 fl (84-94) H 03/29/21 22:41 MCH 37 pg (28-32) H 03/29/21 22:41 MCHC 35 % (32-34) H 03/29/21 22:41 RDW 14.1 % (13.2-15.2) 03/29/21 22:41 Plt Count 171 K/mm3 (140-440) 03/29/21 22:41 Lymph % (Auto) 21.3 % (13.4-35.0) 03/29/21 22:41 [place] % (Auto) 13.5 % (0.0-7.3) H 03/29/21 22:41 Eos % (Auto) 0.1 % (0.0-4.3) 03/29/21 22:41 Baso % (Auto) 0.6 % (0.0-1.8) 03/29/21 22:41 Lymph # (Auto) 1.1 K/mm3 (1.2-5.4) L 03/29/21 22:41 [place] # (Auto) 0.7 K/mm3 (0.0-0.8) 03/29/21 22:41 Eos # (Auto) 0.0 K/mm3 (0.0-0.4) 03/29/21 22:41 Baso # (Auto) 0.0 K/mm3 (0.0-0.1) 03/29/21 22:41 Seg Neutrophils % 64.5 % (40.0-70.0) 03/29/21 22:41 Seg Neutrophils # 3.2 K/mm3 (1.8-7.7) 03/29/21 22:41 D-Dimer 1709.23 ng/mlDDU (0-234) H 03/30/21 01:05 Sodium 132 mmol/L (137-145) L 03/29/21 22:41 Potassium 4.1 mmol/L (3.6-5.0) 03/29/21 22:41 Chloride 96.0 mmol/L (98-107) L 03/29/21 22:41 Carbon Dioxide 27 mmol/L (22-30) 03/29/21 22:41 Anion Gap 13 mmol/L 03/29/21 22:41 BUN 11 mg/dL (9-20) 03/29/21 22:41 Creatinine 0.8 mg/dL (0.8-1.3) 03/29/21 22:41 Estimated GFR > 60 ml/min 03/29/21 22:41 BUN/Creatinine Ratio 14 % 03/29/21 22:41 Glucose 103 mg/dL (75-100) H 03/30/21 01:05 Calcium 8.1 mg/dL (8.4-10.2) L 03/29/21 22:41 Ferritin 585.7 ng/mL (30.0-300.0) H 03/30/21 01:05 Total Bilirubin 0.80 mg/dL (0.1-1.2) 03/29/21 22:41 AST 55 units/L (5-40) H 03/29/21 22:41 ALT 37 units/L (7-56) 03/29/21 22:41 Alkaline Phosphatase 96 units/L (35-129) 03/29/21 22:41 Lactate Dehydrogenase 253 units/L (91-180) H 03/30/21 01:05 C-Reactive Protein 6.90 mg/dL (0.00-1.30) H 03/30/21 01:05 Total Protein 6.2 g/dL (6.3-8.2) L 03/29/21 22:41 Albumin 3.8 g/dL (3.9-5) L 03/29/21 22:41 Albumin/Globulin Ratio 1.6 % 03/29/21 22:41 Urine Color Yellow (Yellow) 03/29/21 23:52 Urine Turbidity Clear (Clear) 03/29/21 23:52 Urine pH 6.0 (5.0-7.0) 03/29/21 23:52 Ur Specific [place] 1.018 (1.003-1.030) 03/29/21 23:52 Urine Protein 30 mg/dl mg/dL (Negative) 03/29/21 23:52 Urine Glucose (UA) Neg mg/dL (Negative) 03/29/21 23:52 Urine Ketones Neg mg/dL (Negative) 03/29/21 23:52 Urine Blood Neg (Negative) 03/29/21 23:52 Urine Nitrite Neg (Negative) 03/29/21 23:52 Urine Bilirubin Neg (Negative) 03/29/21 23:52 Urine Urobilinogen < 2.0 mg/dL (<2.0) 03/29/21 23:52 Ur Leukocyte Esterase Neg (Negative) 03/29/21 23:52 Urine WBC (Auto) 1.0 /HPF (0.0-6.0) 03/29/21 23:52 Urine RBC (Auto) 4.0 /HPF (0.0-6.0) 03/29/21 23:52 Urine Mucus Few /HPF 03/29/21 23:52 Ricketts/IV: Voiding Method Urinal Active Medications - Current Medications Current Medications: Generic Name Dose Route Start Last Admin Trade Name Freq PRN Reason Stop Dose Admin Atenolol 50 mg 03/30/21 10:00 Atenolol 50 Mg Tab PO BID [facility] Clopidogrel Bisulfate 75 mg 03/30/21 10:00 Clopidogrel 75 Mg Tab PO DAILY [facility] Enoxaparin Sodium 40 mg 03/30/21 10:00 Enoxaparin 40 Mg/0.4 Ml Inj SUB-Q DAILY [facility] Protocol Furosemide 20 mg 03/30/21 10:00 Furosemide 20 Mg Tab PO DAILY [facility] Hydralazine HCl 5 mg 03/30/21 02:48 Hydralazine 20 Mg/1 Ml Inj IV Q4HR PRN Hypertension Azithromycin 500 mg in 250 mls @ 250 mls/hr 03/30/21 03:00 03/30/21 05:08 Zithromax/Ns IV 250 mls/hr Q24H CHERELLE Administration Ceftriaxone Sodium 1 gm in 50 mls @ 100 mls/hr 03/30/21 03:00 03/30/21 04:34 Rocephin/Ns 1 Gm/50 Ml IV 100 mls/hr Q24H CHERELLE Administration Protocol Lisinopril 40 mg 03/30/21 10:00 Lisinopril 40 Mg Tab PO QDAY CHERELLE Miscellaneous Medication 400 mg 03/30/21 10:00 Imatinib Mesylate [Gleevec] PO DAILY [facility] Potassium Chloride 10 meq 03/30/21 10:00 Potassium Chloride Er 10 Meq Tab PO QDAY [facility] Pravastatin Sodium 80 mg 03/30/21 22:00 Pravastatin 80 Mg Tab PO HS [facility] Sertraline HCl 50 mg 03/30/21 10:00 Sertraline 50 Mg Tab PO DAILY [facility] Tramadol HCl 50 mg 03/30/21 02:48 Tramadol 50 Mg Tab PO Q6H PRN Pain, Moderate (4-6) Trazodone HCl 50 mg 03/30/21 02:48 Trazodone 50 Mg Tab PO QHS PRN Insomnia
[2021-03-30] MEDS ORDERED: IMATINIB MESYLATE 400 MG PO SCH (10:00)
[2021-03-30] MEDS: ENOXAPARIN 40 MG/0.4 ML INJ SUB-Q SCH (10:32)
[2021-03-30] MEDS: atenoloL 50 MG TAB PO SCH ×2 (10:32→21:48)
[2021-03-30] MEDS: CLOPIDOGREL 75 MG TAB PO SCH (10:32)
[2021-03-30] MEDS: FUROSEMIDE 20 MG TAB PO SCH (10:33)
[2021-03-30] MEDS: LISINOPRIL 40 MG TAB PO SCH (10:33)
[2021-03-30] MEDS: POTASSIUM CHLORIDE ER 10 MEQ TAB PO SCH (10:33)
[2021-03-30] MEDS: SERTRALINE 50 MG TAB PO SCH (10:33)
--- NOTE | 2021-03-30 12:50 | Consultation ---
History of Present Illness - Reason for Consult Consult date: 03/30/21 - History of Present Illness 80-year-old man past medical history hypertension, hyperlipidemia presented to hospital setting of fevers, chills, sweats. He notes having had this fever since March 20, and has since primary care doctor multiple times and despite significant investigations has not revealed any cause. He complains of associated myalgias. He also notes an 9-day history of shortness of breath. 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 Febrile to 1-1.1 with a white count of 5. Currently receiving ceftriaxone and azithromycin. Normal procalcitonin. No cultures available for review. Imaging personally reviewed: Chest CTA: No evidence of PE. 10 mm pulmonary nodule. Review of systems: Deferred to reduce to the risk of transmission of COVID-19 Past History Past Medical History: anemia, hypertension, hyperlipidemia, other (GI bleed) Past Surgical History: bowel surgery (GI bleed, bowel obstruction with colostomy that has been reversed) Social history: lives with family Family history: cancer, diabetes, stroke Medications and Allergies Allergies Allergy/AdvReac Type Severity Reaction Status Date / Time piperacillin [From Zosyn] Allergy Rash Verified 09/20/20 15:37 tazobactam [From Zosyn] Allergy Rash Verified 09/20/20 15:37 Home Medications Medication Instructions Recorded Confirmed Last Taken Type Potassium Chloride [K-Dur] 10 meq PO QDAY 07/26/16 10/11/20 10/10/20 History 10 meq atenoloL [Tenormin] 50 mg PO BID 07/26/16 10/11/20 10/10/20 History 50 mg lisinopriL [Zestril TAB] 40 mg PO QDAY 07/26/16 10/11/20 10/10/20 History 40 mg Clopidogrel [Plavix] 75 mg PO DAILY 09/20/20 10/11/20 10/10/20 History 75 mg Furosemide [Lasix TAB] 20 mg PO DAILY 09/20/20 10/11/20 10/10/20 History 20 mg Imatinib Mesylate [Gleevec] 400 mg PO DAILY 09/20/20 10/11/20 10/10/20 History 400 mg Pravastatin [Pravachol] 80 mg PO HS 09/20/20 10/11/20 10/10/20 History 80 mg Sertraline [Zoloft] 50 mg PO DAILY 09/20/20 10/11/20 10/10/20 History 50 mg Doxycycline Hyclate [Doxycycline 100 mg PO Q12HR #10 tab 10/11/20 Unknown Rx Hyclate TAB] Active Meds: Active Medications Atenolol (Atenolol 50 Mg Tab) 50 mg PO BID [facility] Last Admin: 03/30/21 10:32 Dose: 50 mg Documented by: Clopidogrel Bisulfate (Clopidogrel 75 Mg Tab) 75 mg PO DAILY [facility] Last Admin: 03/30/21 10:32 Dose: 75 mg Documented by: Enoxaparin Sodium (Enoxaparin 40 Mg/0.4 Ml Inj) 40 mg SUB-Q DAILY [facility]; Protocol Last Admin: 03/30/21 10:32 Dose: 40 mg Documented by: Furosemide (Furosemide 20 Mg Tab) 20 mg PO DAILY [facility] Last Admin: 03/30/21 10:33 Dose: 20 mg Documented by: Hydralazine HCl (Hydralazine 20 Mg/1 Ml Inj) 5 mg IV Q4HR PRN PRN Reason: Hypertension Ceftriaxone Sodium (Rocephin/Ns 2 Gm/100 Ml) 2 gm in 100 mls @ 200 mls/hr IV Q24H [facility] Azithromycin (Zithromax/Ns) 500 mg in 250 mls @ 250 mls/hr IV Q24H [facility] Stop: 04/02/21 22:59 Lisinopril (Lisinopril 40 Mg Tab) 40 mg PO QDAY [facility] Last Admin: 03/30/21 10:33 Dose: 40 mg Documented by: Miscellaneous Medication (Imatinib Mesylate [Gleevec]) 400 mg PO DAILY [facility] Potassium Chloride (Potassium Chloride Er 10 Meq Tab) 10 meq PO QDAY [facility] Last Admin: 03/30/21 10:33 Dose: 10 meq Documented by: Pravastatin Sodium (Pravastatin 80 Mg Tab) 80 mg PO HS [facility] Sertraline HCl (Sertraline 50 Mg Tab) 50 mg PO DAILY [facility] Last Admin: 03/30/21 10:33 Dose: 50 mg Documented by: Tramadol HCl (Tramadol 50 Mg Tab) 50 mg PO Q6H PRN PRN Reason: Pain, Moderate (4-6) Trazodone HCl (Trazodone 50 Mg Tab) 50 mg PO QHS PRN PRN Reason: Insomnia Physical Examination - Physical Exam Narrative exam: Physical exam deferred to reduce risk of transmission of COVID-19. Please refer to primary team's note. - Constitutional Vitals: Vital Signs Temp Pulse Resp BP Pulse Ox 99.6 F 89 18 128/72 92 03/30/21 06:22 03/30/21 06:22 03/30/21 06:22 03/30/21 06:22 03/30/21 06:22 Temperature -Last 24 Hours Temperature 99.6 F Temperature 100.3 F Temperature 101.1 F Results - Labs CBC & Chem 7: 03/29/21 22:41 03/30/21 01:05 Labs: Abnormal lab results 03/29/21 03/29/21 03/30/21 Range/Units 22:41 22:41 01:05 RBC 2.79 L (3.65-5.03) M/mm3 Hgb 10.2 L (11.8-15.2) gm/dl Hct 29.5 L (35.5-45.6) % MCV 106 H (84-94) fl MCH 37 H (28-32) pg MCHC 35 H (32-34) % [place] % (Auto) 13.5 H (0.0-7.3) % Lymph # (Auto) 1.1 L (1.2-5.4) K/mm3 D-Dimer 1709.23 H (0-234) ng/mlDDU Sodium 132 L (137-145) mmol/L Chloride 96.0 L (98-107) mmol/L Glucose 103 H (75-100) mg/dL Calcium 8.1 L (8.4-10.2) mg/dL Ferritin (30.0-300.0) ng/mL AST 55 H (5-40) units/L Lactate Dehydrogenase (91-180) units/L C-Reactive Protein (0.00-1.30) mg/dL Total Protein 6.2 L (6.3-8.2) g/dL Albumin 3.8 L (3.9-5) g/dL 03/30/21 03/30/21 Range/Units 01:05 01:05 RBC (3.65-5.03) M/mm3 Hgb (11.8-15.2) gm/dl Hct (35.5-45.6) % MCV (84-94) fl MCH (28-32) pg MCHC (32-34) % [place] % (Auto) (0.0-7.3) % Lymph # (Auto) (1.2-5.4) K/mm3 D-Dimer (0-234) ng/mlDDU Sodium (137-145) mmol/L Chloride (98-107) mmol/L Glucose 103 H (75-100) mg/dL Calcium (8.4-10.2) mg/dL Ferritin 585.7 H (30.0-300.0) ng/mL AST (5-40) units/L Lactate Dehydrogenase 253 H (91-180) units/L C-Reactive Protein 6.90 H (0.00-1.30) mg/dL Total Protein (6.3-8.2) g/dL Albumin (3.9-5) g/dL Assessment and Plan Cultures: None A/P: 80-year-old man past medical history hypertension, hyperlipidemia, GI bleed with colectomy, previous skin cancer admitted with FUO #FUO: Unclear what work-up was performed by primary care doctor. CT scan only revealing of 10mm pulmonary nodule. Minimal risk factors at the present time. Normal white count. Need to consider infectious vs malignant etiologies. #Hx of skin cancer #Hx of GI bleed with colectomy #COVID PUI: await PCR, low risk. Recs: -Check blood cultures -Check UA -Consult pulmonary for pulmonary nodule. -Continue ceftriaxone and azithromycin for now -ORdered: fungitell, Q fever serologies, Histoplasma Ag -Follow up COVID PCR Thank you for the consult, we will continue to follow. Petra Beltrán MD [facility] ([facility]) O: [phone] F: [phone]
[2021-03-30] MEDS: cefTRIAXone/NS 2 GM/100 ML 2 GM/100 ML BAG IV SCH (21:46)
[2021-03-30] MEDS: AZITHROMYCIN/NS 500 MG/250 ML 500 MG/250 ML BAG IV SCH (21:47)
[2021-03-30] MEDS: PRAVASTATIN 80 MG TAB PO SCH (21:47)
--- NOTE | 2021-03-31 08:20 | Progress Note ---
Assessment and Plan Assessment and plan: (1) Fever Patient on presentation with fever, etiology likely COVID 19 vs underlying CML vs recently acquired spider bite. Chest x-ray suspicious for PNA process, currently on room air. Afebrile now. As needed Tylenol Blood culture, Urine Cx:NGTD Awaiting COVID 19 PCR result. First result indeterminate, repeat ordered. Work up with fungitell, Q fever serologies, Histoplasma Ag Empiric Ceftriaxone, azithromycin IV Infectious disease consulted (2) Person under investigation for COVID-19 Isolation with Covid protocol Respiratory care as needed bronchodilator Continue empiric antibiotics (3) Pulmonary nodule 10 mm pulmonary nodule identified in RLL. Patient has a known history of CML pulmonary consulted- recommended outpatient follow up at their office, patietn will need a CT in 3 mo per Fleischner criteria. (4) CML Patient has an active diagnosis of CML, currently being treated with Gleevec 400 mg po daily. Follows outpatient with oncology, Dr. Torres (5) Pneumonia Unknown cause bacterial/viral Patient denies Covid shotrule out Covid ID consulted will follow up with plan of care (6) CHF (congestive heart failure) Patient with history of CHF and A. fib Continue cardioprotective measures Antiplatelet review and statin (7) Elevated d-dimer CT of the chest Bilateral leg ultrasoundfollow-up with results (8) DVT prophylaxis Lovenox subcutaneous 9) Spider bite Appears non infected, could possibly explain symptoms Patient does not know specious of organism. Supportive care (10) Full code status Dispo: Pending negative covid test, can d/c after. History Interval history: Patient doing well on encounter. No complaints. On room air. Denies any fevers, chills, n/v/d. Hospitalist Physical - Constitutional Vitals: Temp Pulse Resp BP Pulse Ox 97.7 F 75 16 117/66 95 03/31/21 03:49 03/31/21 03:49 03/31/21 03:49 03/31/21 03:49 03/31/21 03:49 General appearance: Present: no acute distress - EENT Eyes: Present: PERRL, EOM intact ENT: hearing intact, clear oral mucosa, dentition normal - Neck Neck: Present: supple, normal ROM Details: Old spider bite in healing stage at the base of left neck, does not appear erythematous, purulent. - Respiratory Respiratory effort: normal - Cardiovascular Rhythm: regular - Extremities Extremities: pulses intact, No edema, normal temperature Peripheral Pulses: within normal limits - Abdominal General gastrointestinal: soft, non-tender, non-distended - Integumentary Integumentary: Present: clear, warm, dry - Psychiatric Psychiatric: appropriate mood/affect, intact judgment & insight - Neurologic Neurologic: CNII-XII intact, moves all extremities Results - Labs CBC & Chem 7: 03/29/21 22:41 03/31/21 07:49 Labs: Laboratory Last Values WBC 5.0 K/mm3 (4.5-11.0) 03/29/21 22:41 RBC 2.79 M/mm3 (3.65-5.03) L 03/29/21 22:41 Hgb 10.2 gm/dl (11.8-15.2) L 03/29/21 22:41 Hct 29.5 % (35.5-45.6) L 03/29/21 22:41 MCV 106 fl (84-94) H 03/29/21 22:41 MCH 37 pg (28-32) H 03/29/21 22:41 MCHC 35 % (32-34) H 03/29/21 22:41 RDW 14.1 % (13.2-15.2) 03/29/21 22:41 Plt Count 171 K/mm3 (140-440) 03/29/21 22:41 Lymph % (Auto) 21.3 % (13.4-35.0) 03/29/21 22:41 [place] % (Auto) 13.5 % (0.0-7.3) H 03/29/21 22:41 Eos % (Auto) 0.1 % (0.0-4.3) 03/29/21 22:41 Baso % (Auto) 0.6 % (0.0-1.8) 03/29/21 22:41 Lymph # (Auto) 1.1 K/mm3 (1.2-5.4) L 03/29/21 22:41 [place] # (Auto) 0.7 K/mm3 (0.0-0.8) 03/29/21 22:41 Eos # (Auto) 0.0 K/mm3 (0.0-0.4) 03/29/21 22:41 Baso # (Auto) 0.0 K/mm3 (0.0-0.1) 03/29/21 22:41 Seg Neutrophils % 64.5 % (40.0-70.0) 03/29/21 22:41 Seg Neutrophils # 3.2 K/mm3 (1.8-7.7) 03/29/21 22:41 D-Dimer 1709.23 ng/mlDDU (0-234) H 03/30/21 01:05 Sodium 132 mmol/L (137-145) L 03/29/21 22:41 Potassium 4.1 mmol/L (3.6-5.0) 03/29/21 22:41 Chloride 96.0 mmol/L (98-107) L 03/29/21 22:41 Carbon Dioxide 27 mmol/L (22-30) 03/29/21 22:41 Anion Gap 13 mmol/L 03/29/21 22:41 BUN 11 mg/dL (9-20) 03/29/21 22:41 Creatinine 0.8 mg/dL (0.8-1.3) 03/29/21 22:41 Estimated GFR > 60 ml/min 03/29/21 22:41 BUN/Creatinine Ratio 14 % 03/29/21 22:41 Glucose 103 mg/dL (75-100) H 03/30/21 01:05 Calcium 8.1 mg/dL (8.4-10.2) L 03/29/21 22:41 Ferritin 585.7 ng/mL (30.0-300.0) H 03/30/21 01:05 Total Bilirubin 0.80 mg/dL (0.1-1.2) 03/29/21 22:41 AST 55 units/L (5-40) H 03/29/21 22:41 ALT 37 units/L (7-56) 03/29/21 22:41 Alkaline Phosphatase 96 units/L (35-129) 03/29/21 22:41 Lactate Dehydrogenase 253 units/L (91-180) H 03/30/21 01:05 C-Reactive Protein 6.90 mg/dL (0.00-1.30) H 03/30/21 01:05 Total Protein 6.2 g/dL (6.3-8.2) L 03/29/21 22:41 Albumin 3.8 g/dL (3.9-5) L 03/29/21 22:41 Albumin/Globulin Ratio 1.6 % 03/29/21 22:41 Procalcitonin < 0.05 ng/mL (<0.15) 03/30/21 01:05 Urine Color Yellow (Yellow) 03/29/21 23:52 Urine Turbidity Clear (Clear) 03/29/21 23:52 Urine pH 6.0 (5.0-7.0) 03/29/21 23:52 Ur Specific [place] 1.018 (1.003-1.030) 03/29/21 23:52 Urine Protein 30 mg/dl mg/dL (Negative) 03/29/21 23:52 Urine Glucose (UA) Neg mg/dL (Negative) 03/29/21 23:52 Urine Ketones Neg mg/dL (Negative) 03/29/21 23:52 Urine Blood Neg (Negative) 03/29/21 23:52 Urine Nitrite Neg (Negative) 03/29/21 23:52 Urine Bilirubin Neg (Negative) 03/29/21 23:52 Urine Urobilinogen < 2.0 mg/dL (<2.0) 03/29/21 23:52 Ur Leukocyte Esterase Neg (Negative) 03/29/21 23:52 Urine WBC (Auto) 1.0 /HPF (0.0-6.0) 03/29/21 23:52 Urine RBC (Auto) 4.0 /HPF (0.0-6.0) 03/29/21 23:52 Urine Mucus Few /HPF 03/29/21 23:52 Microbiology: Microbiology 03/30/21 14:17 Peripheral/Venous Blood Culture - Preliminary Culture in Progress 03/30/21 14:17 Peripheral/Venous Blood Culture - Preliminary Culture in Progress Ricketts/IV: Voiding Method Toilet Active Medications - Current Medications Current Medications: Generic Name Dose Route Start Last Admin Trade Name Freq PRN Reason Stop Dose Admin Atenolol 50 mg 03/30/21 10:00 03/30/21 21:48 Atenolol 50 Mg Tab PO 50 mg BID CHERELLE Administration Clopidogrel Bisulfate 75 mg 03/30/21 10:00 03/30/21 10:32 Clopidogrel 75 Mg Tab PO 75 mg DAILY [facility]LE Administration Enoxaparin Sodium 40 mg 03/30/21 10:00 03/30/21 10:32 Enoxaparin 40 Mg/0.4 Ml Inj SUB-Q 40 mg DAILY [facility]ER[facility]LE Administration Protocol Furosemide 20 mg 03/30/21 10:00 03/30/21 10:33 Furosemide 20 Mg Tab PO 20 mg DAILY [facility]LE Administration Hydralazine HCl 5 mg 03/30/21 02:48 Hydralazine 20 Mg/1 Ml Inj IV Q4HR PRN Hypertension Ceftriaxone Sodium 2 gm in 100 mls @ 200 mls/hr 03/30/21 22:00 03/30/21 21:46 Rocephin/Ns 2 Gm/100 Ml IV 200 mls/hr Q24H CHERELLE Administration Azithromycin 500 mg in 250 mls @ 250 mls/hr 03/30/21 22:00 03/30/21 21:47 Zithromax/Ns IV 04/02/21 22:59 250 mls/hr Q24H CHERELLE Administration Lisinopril 40 mg 03/30/21 10:00 03/30/21 10:33 Lisinopril 40 Mg Tab PO 40 mg QDAY CHERELLE Administration Miscellaneous Medication 400 mg 03/30/21 10:00 Imatinib Mesylate [Gleevec] PO DAILY [facility] Potassium Chloride 10 meq 03/30/21 10:00 03/30/21 10:33 Potassium Chloride Er 10 Meq Tab PO 10 meq QDAY [facility] Administration Pravastatin Sodium 80 mg 03/30/21 22:00 03/30/21 21:47 Pravastatin 80 Mg Tab PO 80 mg HS CHERELLE Administration Sertraline HCl 50 mg 03/30/21 10:00 03/30/21 10:33 Sertraline 50 Mg Tab PO 50 mg DAILY [facility] Administration Tramadol HCl 50 mg 03/30/21 02:48 Tramadol 50 Mg Tab PO Q6H PRN Pain, Moderate (4-6) Trazodone HCl 50 mg 03/30/21 02:48 Trazodone 50 Mg Tab PO QHS PRN Insomnia
[2021-03-31 08:37] LABS: Alanine Aminotransferase 38 units/L (7-56); Albumin 3.7 g/dL (3.9-5); BUN/Creatinine Ratio 26; Blood Urea Nitrogen 13 mg/dL (9-20); Calcium 8.4 mg/dL (8.4-10.2); Hemolysis Index 1
--- NOTE | 2021-03-31 11:11 | Progress Note ---
Assessment and Plan Cultures: None A/P: 80-year-old man past medical history hypertension, hyperlipidemia, GI bleed with colectomy, previous skin cancer admitted with FUO #FUO: Unclear what work-up was performed by primary care doctor. CT scan only revealing of 10mm pulmonary nodule. Minimal risk factors at the present time. Normal white count. Need to consider infectious vs malignant etiologies. #Hx of skin cancer #Hx of GI bleed with colectomy #COVID PUI: await PCR, low risk. #CML: On chronic Gleevec. Possible cause of fever. Recs: -Check blood cultures -Check UA -Continue ceftriaxone and azithromycin for now -ORdered: fungitell, Q fever serologies, Histoplasma Ag -Follow up COVID PCR. Discussed with matthew Lopez to discharge her Covid PCR negative. Thank you for the consult, we will continue to follow. Petra Beltrán MD [facility] ([facility]) O: [phone] F: [phone] Subjective Date of service: 03/31/21 Interval history: Afebrile overnight, normal white count. Patient reportedly has CML and is on Gleevec. Pulmonary nodule previously known. Objective - Exam Narrative Exam: Physical exam deferred to reduce risk of transmission of COVID-19. Please refer to primary team's note. - Constitutional Vitals: Vital Signs Temp Pulse Resp BP Pulse Ox 97.7 F 75 16 117/66 95 03/31/21 03:49 03/31/21 03:49 03/31/21 03:49 03/31/21 03:49 03/31/21 03:49 Temperature -Last 24 Hours Temperature 97.7 F Temperature 98.7 F Temperature 100.0 F Temperature 98.2 F - Labs CBC & Chem 7: 03/29/21 22:41 03/31/21 07:49 Labs: Abnormal lab results 03/31/21 Range/Units 07:49 Sodium 136 L (137-145) mmol/L Creatinine 0.5 L (0.8-1.3) mg/dL Glucose 101 H (75-100) mg/dL AST 55 H (5-40) units/L Total Protein 6.2 L (6.3-8.2) g/dL Albumin 3.7 L (3.9-5) g/dL
--- NOTE | 2021-03-31 11:24 | Consultation ---
History of Present Illness Consult date: 03/31/21 Requesting physician: NETTIE NAIDU Reason for consult: abnormal CXR/CT History of present illness: 80 y/o male admitted with chills and fever and shortness of breath. CTA done which was negative for PE but found a 1 cm right lower lobe nodule. Pulmonary consulted for this. No prior history of lung CA. Nonsmoker. Patient is not hypoxic. Past History Past Medical History: anemia, hypertension, hyperlipidemia Past Surgical History: bowel surgery (GI bleed, bowel obstruction with colostomy that has been reversed) Social history: lives with family Family history: cancer, diabetes, stroke Medications and Allergies Allergies Allergy/AdvReac Type Severity Reaction Status Date / Time piperacillin [From Zosyn] Allergy Rash Verified 09/20/20 15:37 tazobactam [From Zosyn] Allergy Rash Verified 09/20/20 15:37 Home Medications Medication Instructions Recorded Confirmed Last Taken Type Potassium Chloride [K-Dur] 10 meq PO QDAY 07/26/16 03/30/21 10/10/20 History 10 meq atenoloL [Tenormin] 50 mg PO BID 07/26/16 03/30/21 10/10/20 History 50 mg lisinopriL [Zestril TAB] 40 mg PO QDAY 07/26/16 03/30/21 10/10/20 History 40 mg Clopidogrel [Plavix] 75 mg PO DAILY 09/20/20 03/30/21 10/10/20 History 75 mg Furosemide [Lasix TAB] 20 mg PO DAILY 09/20/20 03/30/21 10/10/20 History 20 mg Imatinib Mesylate [Gleevec] 400 mg PO DAILY 09/20/20 03/30/21 10/10/20 History 400 mg Pravastatin [Pravachol] 80 mg PO HS 09/20/20 03/30/21 10/10/20 History 80 mg Sertraline [Zoloft] 50 mg PO DAILY 09/20/20 03/30/21 10/10/20 History 50 mg Doxycycline Hyclate [Doxycycline 100 mg PO Q12HR #10 tab 10/11/20 03/30/21 Unknown Rx Hyclate TAB] Active Meds: Active Medications Atenolol (Atenolol 50 Mg Tab) 50 mg PO BID CHERELLE Last Admin: 03/30/21 21:48 Dose: 50 mg Documented by: Clopidogrel Bisulfate (Clopidogrel 75 Mg Tab) 75 mg PO DAILY [facility] Last Admin: 03/30/21 10:32 Dose: 75 mg Documented by: Enoxaparin Sodium (Enoxaparin 40 Mg/0.4 Ml Inj) 40 mg SUB-Q DAILY [facility]; Protocol Last Admin: 03/30/21 10:32 Dose: 40 mg Documented by: Furosemide (Furosemide 20 Mg Tab) 20 mg PO DAILY [facility] Last Admin: 03/30/21 10:33 Dose: 20 mg Documented by: Hydralazine HCl (Hydralazine 20 Mg/1 Ml Inj) 5 mg IV Q4HR PRN PRN Reason: Hypertension Ceftriaxone Sodium (Rocephin/Ns 2 Gm/100 Ml) 2 gm in 100 mls @ 200 mls/hr IV Q24H [facility] Last Admin: 03/30/21 21:46 Dose: 200 mls/hr Documented by: Azithromycin (Zithromax/Ns) 500 mg in 250 mls @ 250 mls/hr IV Q24H [facility] Stop: 04/02/21 22:59 Last Admin: 03/30/21 21:47 Dose: 250 mls/hr Documented by: Lisinopril (Lisinopril 40 Mg Tab) 40 mg PO QDAY [facility] Last Admin: 03/30/21 10:33 Dose: 40 mg Documented by: Miscellaneous Medication (Imatinib Mesylate [Gleevec]) 400 mg PO DAILY [facility] Potassium Chloride (Potassium Chloride Er 10 Meq Tab) 10 meq PO QDAY [facility] Last Admin: 03/30/21 10:33 Dose: 10 meq Documented by: Pravastatin Sodium (Pravastatin 80 Mg Tab) 80 mg PO [facility] Last Admin: 03/30/21 21:47 Dose: 80 mg Documented by: Sertraline HCl (Sertraline 50 Mg Tab) 50 mg PO DAILY [facility] Last Admin: 03/30/21 10:33 Dose: 50 mg Documented by: Tramadol HCl (Tramadol 50 Mg Tab) 50 mg PO Q6H PRN PRN Reason: Pain, Moderate (4-6) Trazodone HCl (Trazodone 50 Mg Tab) 50 mg PO QHS PRN PRN Reason: Insomnia Review of Systems All systems: negative Physical Examination Vital signs: Vital Signs Temp Pulse Resp BP Pulse Ox 101.1 F H 93 H 22 132/63 95 03/29/21 21:52 03/29/21 21:52 03/29/21 21:52 03/29/21 21:52 03/29/21 21:52 General appearance: no acute distress, alert, other (stable on room air) Neck: supple Ascultation: Bilateral: clear Results - Laboratory Findings CBC and BMP: 03/29/21 22:41 03/31/21 07:49 PT/INR, D-dimer D-Dimer 1709.23 ng/mlDDU (0-234) H 03/30/21 01:05 Abnormal lab findings: Abnormal Labs 03/29/21 03/29/21 03/30/21 22:41 22:41 01:05 RBC 2.79 L Hgb 10.2 L Hct 29.5 L MCV 106 H MCH 37 H MCHC 35 H [place] % (Auto) 13.5 H Lymph # (Auto) 1.1 L D-Dimer 1709.23 H Sodium 132 L Chloride 96.0 L Creatinine Glucose 103 H Calcium 8.1 L Ferritin AST 55 H Lactate Dehydrogenase C-Reactive Protein Total Protein 6.2 L Albumin 3.8 L 03/30/21 03/30/21 03/31/21 01:05 01:05 07:49 RBC Hgb Hct MCV MCH MCHC [place] % (Auto) Lymph # (Auto) D-Dimer Sodium 136 L Chloride Creatinine 0.5 L Glucose 103 H 101 H Calcium Ferritin 585.7 H AST 55 H Lactate Dehydrogenase 253 H C-Reactive Protein 6.90 H Total Protein 6.2 L Albumin 3.7 L - Diagnostic Findings CT scan - chest: image reviewed Assessment and Plan 80 y/o male with single solitary pulmonary nodule This patient has a 8.4% probability of being malignancy and the large part of that is secondary to his age given he has no other risk factors for pulmonary malignancy. Agree with Rads based on Fleischner guidelines with follow up in 3 months with repeat scans. The lesion should be easily accessed with CT guided b iopsy given its proximity to the periphery and the rib cage. No further work up is needed in house pulm mustafa. Will sign off. Call if questions or concerns.
[2021-03-31] MEDS: POTASSIUM CHLORIDE ER 10 MEQ TAB PO SCH (11:31)
[2021-03-31] MEDS: FUROSEMIDE 20 MG TAB PO SCH (11:32)
[2021-03-31] MEDS: LISINOPRIL 40 MG TAB PO SCH (11:32)
[2021-03-31] MEDS: SERTRALINE 50 MG TAB PO SCH (11:32)
[2021-03-31] MEDS: CLOPIDOGREL 75 MG TAB PO SCH (11:32)
[2021-03-31] MEDS: atenoloL 50 MG TAB PO SCH ×2 (11:32→21:29)
[2021-03-31] MEDS: ENOXAPARIN 40 MG/0.4 ML INJ SUB-Q SCH (11:33)
[2021-03-31] MEDS: cefTRIAXone/NS 2 GM/100 ML 2 GM/100 ML BAG IV SCH (21:27)
[2021-03-31] MEDS: AZITHROMYCIN/NS 500 MG/250 ML 500 MG/250 ML BAG IV SCH (21:27)
[2021-03-31] MEDS: PRAVASTATIN 80 MG TAB PO SCH (21:29)
--- NOTE | 2021-04-01 09:21 | Discharge Summary ---
Providers - Providers Date of Admission: 03/30/21 00:52 Date of discharge: 04/01/21 Attending physician: NETTIE NAIDU MD 03/30/21 00:44 Consult to Physician [CONS] Stat Comment: Consulting Provider: MONAE BULLOCK Physician Instructions: Reason For Exam: fever. pui 03/30/21 15:16 Consult to Physician [CONS] Routine Comment: Consulting Provider: TALYA GUADALUPE Physician Instructions: Reason For Exam: 10mm pulmonary nodule RLL Primary care physician: Delfin IBRAHIM MD Hospitalization Reason for admission: Fever Condition: Fair Hospital course: Patient is an 80-year-old male who presents emergency room with complaints of high fever, chills, sweats. Patient states that he has had fever since February 18. Patient states he seen his primary care multiple times. Patient states that he has had multiple lab draws and diagnostics done. Patient states that his sweats happen after he takes Tylenol. Patient states that his fever got up to 103. Patient also complains of myalgias and muscle aches. Patient states he had an ultrasound of bilateral lower extremities to rule out DVT since patient had muscle pains when examined by his primary care in his legs. Patient states he also had a chest x-ray done by his primary care. ED work-up WBC 5.0, hemoglobin 10.2, platelets 171, D-dimer 1709.33, sodium 133, potassium 4.1, creatinine 0.8, serum glucose 113, calcium 8.1, serum albumin 3.8. Checks x-ray showed a small left pleural effusion and tiny right pleural effusion the heart is mildly enlarged. Patient seen in ED at bedside. Patient came with shortness of breath fever he said ongoing for 9 days. Patient was having Patient alert oriented x3 lungs clear. I reviewed patient chart, vital signs medication record patient has a history of GI bleed, bowel resection with colostomy. Colostomy has been revised. Patient also has a history of high blood pressure and high cholesterol. Patient also had pacemaker on the skin cancer surgery x3. Patient is on room air. ENTRY LEVEL FINANCE and not in acute distress Assessment and Plan Assessment and plan: (1) Fever Patient on presentation with fever, differential includes COVID 19 vs underlying CML vs recently acquired spider bite. Chest x-ray suspicious for PNA process, currently on room air. Afebrile now. As needed Tylenol Blood culture, Urine Cx:NGTD COVID-19 PCR negative Work up with fungitell, Q fever serologies, Histoplasma Ag Empiric Ceftriaxone, azithromycin IV, will discontinue Infectious disease consulted (2) Person under investigation for COVID-19 Isolation with Covid protocolcan DC Respiratory care as needed bronchodilator Discontinue empiric antibiotics (3) Pulmonary nodule 10 mm pulmonary nodule identified in RLL. Patient has a known history of CML pulmonary consulted- recommended outpatient follow up at their office, patient will need a CT in 3 mo per Fleischner criteria. (4) CML Patient has an active diagnosis of CML, currently being treated with Gleevec 400 mg po daily. Follows outpatient with oncology, Dr. Torres (5) Pneumonia Unknown cause bacterial/viral Patient denies Covid shotrule out Covid ID consulted will follow up with plan of care (6) CHF (congestive heart failure) Patient with history of CHF and A. fib Continue cardioprotective measures Antiplatelet review and statin (7) Elevated d-dimer CT of the chest Bilateral leg ultrasoundfollow-up with results (8) DVT prophylaxis Lovenox subcutaneous 9) Spider bite Appears non infected, could possibly explain symptoms Patient does not know specious of organism. Supportive care (10) Full code status Dispo: Discharge home patient can follow-up with primary care doctor in 3 to 5 days. Disposition: DC- TO HOME OR SELFCARE Final Discharge Diagnosis (Prints w/discharge instructions): Fever of unknown origin Time spent for discharge: 55 - Discharge Diagnoses (1) Anemia Status: Acute Qualifiers: Anemia type: unspecified type Qualified Code(s): D64.9 - Anemia, unspecified (2) Elevated d-dimer Status: Acute (3) Fever Status: Acute Qualifiers: Fever type: unspecified Qualified Code(s): R50.9 - Fever, unspecified (4) Person under investigation for COVID-19 Status: Acute (5) Atrial fibrillation Status: Acute (6) CML (chronic myelocytic leukemia) Status: Chronic (7) Hyperlipidemia Status: Chronic (8) Hypertension Status: Chronic Core Measure Documentation - Palliative Care Palliative Care/ Comfort Measures: Not Applicable - Core Measures Any of the following diagnoses?: none Exam - Physical Exam Narrative exam: General appearance: Present: no acute distress - EENT Eyes: Present: PERRL, EOM intact ENT: hearing intact, clear oral mucosa, dentition normal - Neck Neck: Present: supple, normal ROM Details: Old spider bite in healing stage at the base of left neck, does not appear erythematous, purulent. - Respiratory Respiratory effort: normal - Cardiovascular Rhythm: regular - Extremities Extremities: pulses intact, No edema, normal temperature Peripheral Pulses: within normal limits - Abdominal General gastrointestinal: soft, non-tender, non-distended - Integumentary Integumentary: Present: clear, warm, dry - Psychiatric Psychiatric: appropriate mood/affect, intact judgment & insight - Neurologic Neurologic: CNII-XII intact, moves all extremities - Constitutional Vitals: Temp Pulse Resp BP Pulse Ox 98.5 F 75 16 109/52 95 04/01/21 04:53 04/01/21 04:53 04/01/21 04:53 04/01/21 04:53 04/01/21 04:53 Plan Activity: no restrictions Weight Bearing Status: Full Weight Bearing Diet: low fat, low cholesterol, low salt Plan of Treatment: Rafiq Zavala. You were admitted for fever of unknown origin. Upon further investigations we suspect that the fever is likely due to either your underlying CML diagnosis versus your recently acquired spider bite. Your symptoms resolved quickly after your first day here. Upon examination of the location of your spider bite, we were not concerned about an active infection as it was healing well. Additionally, you were tested for Covid and were found to be negative. A CT scan of your chest found that you had a single solitary 10 mm nodule. It has an 8.4% probability of being malignancy and thus should be investigated per the Fleischner criteria guidelines in 3 months with a repeat scan. Please bring this to the attention of your oncologist. We had a switch coupler evaluate you, his information as below in this discharge summary so that you can follow-up regarding this nodule. We also had an infectious disease doctor evaluate you . We will be discharging you home with instructions to follow-up with your primary care doctor and your oncologist. Dr. Moisés Gonzales Address: [address] [place] [address] Follow up with: Abiola IBRAHIM MD [Primary Care Provider] - 7 Days
[2021-04-01] MEDS: CLOPIDOGREL 75 MG TAB PO SCH (10:01)
[2021-04-01] MEDS: SERTRALINE 50 MG TAB PO SCH (10:01)
[2021-04-01] MEDS: atenoloL 50 MG TAB PO SCH (10:01)
[2021-04-01] MEDS: ENOXAPARIN 40 MG/0.4 ML INJ SUB-Q SCH (10:01)
[2021-04-01] MEDS: LISINOPRIL 40 MG TAB PO SCH (10:02)
[2021-04-01] MEDS: POTASSIUM CHLORIDE ER 10 MEQ TAB PO SCH (10:02)
[2021-04-01] MEDS: FUROSEMIDE 20 MG TAB PO SCH (10:02)
[2021-04-01 12:14] VITALS: BP 127/74
--- NOTE | 2021-04-01 13:18 | Progress Note ---
Assessment and Plan Cultures: Blood culture 03/30/2021 no growth SARS-CoV-2 PCR indeterminate A/P: 80-year-old man past medical history hypertension, hyperlipidemia, GI bleed with colectomy, previous skin cancer admitted with FUO #FUO: No growth for 48 hours. UA negative. Unclear what work-up was performed by primary care doctor. CT scan only revealing of 10mm pulmonary nodule. Minimal risk factors at the present time. CT w/o consolidation. Normal white count. SARS-CoV-2 PCR indeterminate. Procalcitonin is low. Patient is not hypoxic. #Hx of skin cancer #Hx of GI bleed with colectomy #CML: On chronic Gleevec. Possible cause of fever. Recs: -Okay to discharge home -Pulmonary follow-up for lung nodule -Repeat SARS-CoV-2 PCR within 1 or 2 days -Monitor on antibiotics -Follow-up fungitell, Q fever serologies, Histoplasma Ag -ID clinic follow-up with Dr. Beltrán in 1 to 2 weeks MD [facility] ([facility]) Office [phone] Subjective Date of service: 04/01/21 Principal diagnosis: FUO Interval history: Patient feels better, still home. No fever for 48 hours. Currently on room air. Sats 94%. Objective - Exam Narrative Exam: General appearance: Alert in NAD pleasant Eyes: anicteric sclerae, moist conjunctivae; no lid-lag; PERRLA HENT: Normocephalic, Atraumatic; normal external ears, nares open, oropharynx clear with moist mucous membranes and no oral thrush Neck: supple, tracheal midline, no JVD Lungs: CTA, with normal respiratory effort and no intercostal retractions CV: RRR no murmur Abdomen: Soft, non-tender; no masses or hepatosplenomegaly Extremities: no edema, no cyanosis Skin: No rash. Psych: no agitated Neuro: alert and oriented x 3. Moving all extermities - Constitutional Vitals: Vital Signs Temp Pulse Resp BP Pulse Ox 99.1 F 91 H 19 127/74 94 04/01/21 11:06 04/01/21 11:06 04/01/21 11:06 04/01/21 11:06 04/01/21 11:06 Temperature -Last 24 Hours Temperature 99.1 F Temperature 98.5 F Temperature 97.9 F Temperature 98.1 F - Labs CBC & Chem 7: 03/29/21 22:41 03/31/21 07:49
== END 2021-04-01 17:30 | disposition home or self-care (01) ==
LOC: ED 20:44 → 3A 03-30 00:52
PROVIDERS: ADMIT Hospitalist; ATTEND Internal Medicine
DX: R50.9 Fever, unspecified (principal); Z20.822 Contact with and (suspected) exposure to COVID-19; I11.0 Hypertensive heart disease with heart failure; I50.9 Heart failure, unspecified; C92.10 Chronic myeloid leukemia, BCR/ABL-positive, not having achieved remission; T63.301A Toxic effect of unspecified spider venom, accidental (unintentional), initial encounter; J90 Pleural effusion, not elsewhere classified; I48.91 Unspecified atrial fibrillation; J18.9 Pneumonia, unspecified organism; R77.8 Other specified abnormalities of plasma proteins; D64.9 Anemia, unspecified; R91.1 Solitary pulmonary nodule; E78.5 Hyperlipidemia, unspecified; Z79.899 Other long term (current) drug therapy; Z98.890 Other specified postprocedural states; Z87.891 Personal history of nicotine dependence
CPT/HCPCS: 36415; 71045; 71275; 80053; 81001; 82728; 82947; 83615; 84145; 85025; 85379; 86140; 87040; 96361; 96365; 96366; 96367; 96368; 96372; 96375; 99291; A9270; G0378; J0456; J0696; J1100; J1650; J7030; Q9967; U0003

== ENCOUNTER 2021-09-19 08:40 | Outpatient (CLI) | payer MEDICARE ==
--- NOTE | 2021-09-19 11:41 | PET Report ---
PET/CT HISTORY: C92.10/D47.3/D72.829. Right lung nodule TECHNIQUE: The patient's fasting blood glucose was 92. The patient weighed 210 lbs. The patient wa s injected with 12.9 mCi of FDG in the right antecubital fossa at 0950 hours and imaging was started at 1035 hours. The patient was imaged from the skull base to the thighs. All CT scans at this locati on are performed using CT dose reduction for ALARA by means of automated exposure control. Images wer e reviewed on a workstation. COMPARISON: CTA chest dated 03/30/2021 FINDINGS: IMAGED BRAIN: Physiologic FDG uptake. NECK: Physiologic FDG uptake. CHEST WALL: Physiologic FDG uptake. MEDIASTINUM: Physiologic FDG uptake. Moderate cardiomegaly. LUNGS: Physiologic FDG uptake. Previously described pleural-based nodular density at the lateral rig ht lung base is unchanged in size measuring 10 mm. Max SUV measures 2.4. No new lung lesion is detect ed. Small bilateral pleural effusions are noted. HEPATOBILIARY: Physiologic FDG uptake. PANCREAS: Physiologic FDG uptake. SPLEEN: Physiologic FDG uptake. KIDNEYS/BLADDER: Physiologic FDG uptake. Horseshoe kidney is noted. There are 4 cysts in the right s shelly of the horseshoe kidney measuring up to 5.2 cm. 2 of the cysts demonstrate hemorrhagic change. No mass or nephrolithiasis. ADRENAL GLANDS: Physiologic FDG uptake. GI/MESENTERY: Physiologic FDG uptake. PELVIC VISCERA: Physiologic FDG uptake. LYMPH NODES: Physiologic FDG uptake. OSSEOUS STRUCTURES: Physiologic FDG uptake. No suspicious bony lesion is detected. ADDITIONAL FINDINGS: None. IMPRESSION: Negative PET CT. 10 mm subpleural nodule at the lateral right lung base is unchanged since 03/30/[address] follow-up in one year if needed. Cardiomegaly and bilateral pleural effusions. Horseshoe kidney with cysts as described. Signer Name: Abdon Hernandez Jr, MD Signed: 09/19/2021 11:36 AM Workstation Name: [id number]
== END 2021-09-19 08:41 | disposition home or self-care (01) ==
LOC: PET 08:40
PROVIDERS: ATTEND Internal Medicine Hematology & Oncology
DX: C92.10 Chronic myeloid leukemia, BCR/ABL-positive, not having achieved remission (principal); D47.3 Essential (hemorrhagic) thrombocythemia; D72.829 Elevated white blood cell count, unspecified; D72.9 Disorder of white blood cells, unspecified; R50.9 Fever, unspecified; R63.4 Abnormal weight loss; R91.1 Solitary pulmonary nodule; N28.1 Cyst of kidney, acquired
CPT/HCPCS: 78815; 82962; A9552